=== PATIENT | female | born 1970 | race Caucasian/White ===

== ENCOUNTER 2018-03-31 02:05 | Emergency (ER) | payer OTHER, SELFPAY ==
[2018-03-31 02:05] VITALS: BP 126/66; PULSE 64; RESP 16; TEMP 36.8; O2SAT 100; BMI 24.3
[2018-03-31] MEDS: Ondansetron 4 MG/2 ML Vial IV ×2 (02:52→05:06)
[2018-03-31] MEDS: 0.9% Normal Saline 1,000 ML 1000 ML IV (02:52)
[2018-03-31] MEDS: Morphine 4 MG/ML Syringe IV ×2 (02:52→05:06)
--- NOTE | 2018-03-31 04:06 | ED.DCSUM_ITS ---
- ER Visit Summary Date of Service: 03/31/18 Chief Complaint: [] Abdominal pain History of Present Illness: The patient is a 47 F [] stated she has had abdominal pain for last 4-1/2 hours. Came on after dinner eating [place]oc[place] food. It is aching diffuse pain. Associated 3 episodes of emesis. She had normal bowel movement tonight. She tried Tums with no relief. She has never had this before. Physical Examination: [] Vital signs reviewed General: Well-nourished well-developed Head: Normocephalic atraumatic Eyes: Pupils equal round and reactive to light extraocular movements intact ENT: TMs clear no hemotympanum no trauma Neck: Nontender full range of motion Cardiovascular: Regular rate rhythm no murmurs normal S1-S2 Respiratory: No distress clear to auscultation bilaterally chest nontender Abdomen: Soft gastric tenderness noted nondistended normal bowel sounds no masses Back: Nontender no CVA tenderness Extremities: Nontender active range of motion ?4 extremities no trauma Skin: Normal color no trauma Neuro alert oriented cranial nerves II through XII intact normal strength sensation reflexes Test Results: [] Emergency Department Course and Treatment: [] She given IV fluids Zofran and morphine. Lab work obtained. Lab work shows chloride of 112. Calcium 8.2. Liver function tests lipase normal. CBC shows no significant leukocytosis. She is negative. She does have 93 segs. Patient felt better after treatment but still has some mild pain and nausea. Given a second dose of treatment. She will be discharged with a short course of [place] and Zofran. I do not think she has an acute abdominal emergency that would warrant imaging at this time. No evidence of pancreatitis. This could be an upset stomach with gastritis and pain from eating [place]oc[place] food. She will return if she worsens Treatment Plan: [] Disposition: [] Impression: []Abdominal pain-epigastric Nausea and vomiting This note was generated with S[employer]her[employer] dictation software. It may contain incorrect words, spelling, and punctuation that were not noted in review of the chart prior to signing ED Disposition - Plan for ED Patient: Chief Complaint: Abd Pain Referrals: Ken Fountain MD [Primary Care Provider] -
[2018-03-31 04:16] LABS: Pregnancy, Serum, hCG Quali. NEGATIVE Negative (0-9 Nonpreg)
[2018-03-31 04:17] LABS: AST(SGOT) 15 U/L (15-37); Alanine Aminotransfer ALT/SGPT 22 U/L (13-56); Albumin, Serum 3.7 g/dL (3.2-5.0); Alkaline Phosphatase 83 U/L (45-117); Anion Gap 8 (5-15); BUN 12 mg/dL (7-18); BUN/Creat Ratio 14.1 RATIO (10-20); Bilirubin, Direct 0.11 mg/dL (0.00-0.30); Calcium,Total 8.2 mg/dL (8.5-10.1); Chloride 112 mmol/L (98-107); Creatinine, Serum 0.85 mg/dL (0.55-1.02); EST Glomerular Filtration Rate 76 mL/min (>60); Est Glom Filt Rate - Afr Amer 92 mL/min (>60); Estimated Creatinine Clearance 68.41 ml/min; Globulin 3.1 g/dL (2.2-4.2); Glucose 126 mg/dL (74-106); Lipase 118 U/L (73-393); Potassium 3.7 mmol/L (3.5-5.1); Protein, Total 6.8 g/dL (6.4-8.2); Sodium Level 145 mmol/L (136-145)
[2018-03-31 04:20] VITALS: BP 122/68; PULSE 76; RESP 16; O2SAT 98
[2018-03-31 04:48] LABS: Absolute Lymphocyte Count 0.49 X10^3/ul (0.83-4.51); Absolute Neutrophil Count 9.4 X10^3/uL (2.0-7.7); Basophil# 0.01 X10^3/uL; Basophil% 0.1 % (0-1); Eosinophil# 0.01 X10^3/uL; Eosinophils% 0.1 % (0-5); Hemoglobin 12.5 g/dl (12.0-15.0); Lymphocyte # 0.49 X10^3/ul (4.0); Lymphocyte % 4.8 % (19-41); Mean Corp Hgb Conc 34.7 g/gl (32-36); Mean Corpuscular Hgb 30.9 pg (27.0-32.0); Mean Corpuscular Volume 89.1 fL (81-99); Mean Platelet Vol. 10.1 fl (6.2-12.0); Monocyte# 0.14 X10^3/uL; Monocyte% 1.4 % (0-10); Neutrophil # 9.44 X10^3/uL (2.7-7.7); Neutrophil % 93.4 % (47-70); Platelet Count 229 K/mm3 (150-450); RBC Distribution Width CV 11.9 % (11.6-14.6); RBC Distribution Width SD 38.8 fl (35.1-43.9); Red Blood Count 4.04 M/mm3 (4.2-5.4); White Blood Count 10.1 K/mm3 (4.4-11.0)
[2018-03-31 04:49] LABS: Differential Indicated SCAN CRITERIA MET; POSITIVE COUNT NO; POSITIVE DIFFERENTIAL NO; POSITIVE MORPHOLOGY NO
--- NOTE | 2018-03-31 04:59 | ED.DEP ---
ED Disposition - Plan for ED Patient: Disposition: Home or Assisted Living Chief Complaint: Abd Pain Instructions: ED Abdominal Pain Unkn Cause Prescriptions: Hydrocodone Bitart/Apap 5-325 [[place]sea 5MG-325MG] 1 - 2 tab PO Q4H PRN PRN 2 Days #10 tab PRN Reason: Pain Ondansetron [Zofran Odt] 4 mg PO Q8H PRN PRN #10 tab PRN Reason: Nausea Referrals: Ken Fountain MD [Primary Care Provider] -
[2018-03-31 05:09] VITALS: BP 119/75; PULSE 77; RESP 16; O2SAT 99
== END 2018-03-31 05:17 | disposition home or self-care (01) ==
PROVIDERS: Emergency Provider Emergency Medicine
DX: R10.13 Epigastric pain (principal); R11.2 Nausea with vomiting, unspecified
CPT/HCPCS: 36415; 80048; 80076; 83690; 84703; 85025; 96361; 96374; 96375; 96376; 99285; J7030; A4216; J2405

== ENCOUNTER 2021-01-18 23:25 | Observation (INO) | payer OTHER, SELFPAY ==
[2021-01-18 23:28] VITALS: BP 119/75; PULSE 119; RESP 20; TEMP 36.4; O2SAT 90; BMI 26.5
[2021-01-18 23:29] VITALS: BP 119/75; PULSE 119; RESP 20; TEMP 36.4; O2SAT 90
[2021-01-18 23:35] VITALS: O2SAT 93
[2021-01-19] VITALS (13 sets, daily range): BP systolic 92–122; BP diastolic 57–73; PULSE 78–103; RESP 16–32; TEMP 36.7–37.2; O2SAT 89–98; BMI 27.8
--- NOTE | 2021-01-19 | EKG12_ITS ---
Test Reason : SOB Blood Pressure : / mmHG Vent. Rate : 109 BPM Atrial Rate : 109 BPM P-R Int : 142 ms QRS Dur : 094 ms QT Int : 346 ms P-R-T Axes : 024 029 026 degrees QTc Int : 465 ms Sinus tachycardia Incomplete right bundle branch block Borderline ECG Confirmed by TRENT VÁSQUEZ, CLAYTON ([id number]), video editor SEBASTIAN VILLANUEVA ([id number]) on 01/22/2021 2:48:39 PM Referred By: BB Confirmed By:MADAN NEWMAN MD
--- NOTE | 2021-01-19 | RAD_ITS ---
STUDY: X-RAY CHEST REASON FOR EXAM: Female, 50 years old. sob, cough TECHNIQUE: Single AP portable view of the chest. COMPARISON: None. FINDINGS: The lungs are normally expanded with left mid lower lung field patchy opacities consistent with pneumonia. Right basilar consolidation suggestive of atelectasis versus infiltrate. There is no demonstrated pleural abnormality. Normal size heart. Normal mediastinum and sony. Normal visualized pulmonary arteries. Normal visualized aortic arch and descending thoracic aorta. Normal visualized thoracic spine. Normal visualized ribs, clavicles, and shoulders. There is no demonstrated abnormality of the visualized soft tissue structures of the upper abdomen. RAD/Chest 1 View (Portable) IMPRESSION: Left mid lower lung field pneumonia. Right basilar atelectasis versus infiltrate. Clinical correlation recommended. Electronically Signed: Suad Rodriguez MD at 1:10 EDT , Service support ,
--- NOTE | 2021-01-19 00:01 | ED.VIS.DYS ---
History of Present Illness Chief Complaint: Shortness of Breath Informant: Patient, Spouse/S.O. 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 Negative for: Clear sputum Chest Pain: None Narrative: 50-year-old female who has felt malaised and short of breath for the last few days. She has had a minor nonproductive cough off-and-on, but does not feel like she has a major cough or congestion or sore throat. She begins by describing this constellation of symptoms with the fact that she has been feeling very anxious. She has a hard time pinpointing what she is feeling anxious about, but it includes what is making her feel dyspneic. She states 2 weeks ago she would do a workout on the elliptical without any problems. She went to urgent care today and had a negative rapid Covid test, they sent a PCR out which is not back yet. Her also had a negative rapid Covid test and then a negative PCR before all of this. She has not had contact with anyone with Covid that she knows of but she is concerned that she may have gotten it and is getting sick. She denies any fevers or chills, myalgias, loss of taste or smell except for 1 day last week or so, she has had some headaches because she has had insomnia with inability to sleep for the last 2 nights and she has 4 children and wants to be able to sleep more than anything right now. She denies any long trips or travel out of the area recently, hospitalization, surgery, denies any history of blood clots in her legs or lungs, no pain or swelling in 1 leg or the other recently. No injuries. Past Medical History - Allergies and Home Meds Allergies/Adverse Reactions: Allergies No Known Allergies Allergy (Verified 01/18/21 23:26) Primary Care Physician: Ken Singh MD [Primary Care Provider] - Past Medical History: None Lives: With Family Smoking Status: Never smoker Review of Systems General: Reports: Malaise. Denies: Chills, Fever, Sweats Eyes: Denies: Visual changes - bilaterally, Diplopia ENT: Denies: Bilateral ear pain, Rhinorrhea, Sore throat Cardiovascular: Denies: Chest pain, Palpitations, Heart racing Respiratory: Reports: Dyspnea, Cough, Dyspnea on exertion, Orthopnea. Denies: Sputum Gastrointestinal: Reports: Diarrhea. Denies: Abdominal pain, Nausea, Vomiting, Melena, Hematochezia Genitourinary: Denies: Dysuria, Hematuria, Frequency Musculoskeletal: Denies: Myalgias, Arthralgias, Neck pain, Back pain, Swelling, Extremity Pain Skin: Denies: Rash, Wounds Neurological: Reports: Headache. Denies: Weakness, Numbness Psych: Reports: Anxiety. Denies: Suicidal thoughts Physical Exam Vital Signs/Narrative: Vital Signs Temp Pulse Resp BP Pulse Ox 01/18/21 23:29 97.5 F L 119 H 20 H 119/75 90 01/18/21 23:28 97.5 F L 119 H 20 H 119/75 90 Inital Vital Signs reviewed: Yes General: Well nourished, Well developed, No Acute Distress Head: Normocephalic, Atraumatic Eyes: Perrl, EOMI ENT: Moist mucous membranes, No rhinorrhea Neck: Supple, Nontender, No lymphadenopathy Cardiovascular: Regular rate, Regular rhythm, No murmurs, Normal S1, Normal S2, Tachycardia Respiratory: No distress, CTA bilaterally, Chest nontender Abdomen: Soft, Nontender, Nondistended, Normal bowel sounds Back: Nontender, Normal Inspection. Negative for: CVA tenderness Extremities: Nontender, No edema. Negative for: Calf Tenderness Skin: Normal color, No rash, No Trauma Neurological: Alert, Oriented x3, Cranial nerves II-XII grossly intact, Normal Strength, Normal Sensation, Normal Gait Psychological: - - very anxious Diagnostic/Tx/Re-eval Impressions Chest X-Ray 01/19/21 00:00 IMPRESSION: Left mid lower lung field pneumonia. Right basilar atelectasis versus infiltrate. Clinical correlation recommended. Electronically Signed: Suad Rodriguez MD at 1:10 EDT , Service support , Chest CTA 01/19/21 01:33 IMPRESSION: Negative CTA chest examination, without a demonstrated pulmonary embolism or arterial dissection. Diffuse bilateral multifocal pneumonitis. Electronically Signed: Suad Rodriguez MD at 2:35 EDT , Service support , 01/19/21 00:00 Chest 1 View (Portable) [RAD] Stat 01/19/21 01:33 CTA Chest W/WO Contrast [CT] Stat Laboratory Results 01/19/21 01/19/21 01/19/21 00:30 00:30 00:30 WBC 5.1 RBC 4.16 L Hgb 13.2 Hct 36.7 L MCV 88.2 MCH 31.7 MCHC 36.0 RDW Std Deviation 38.5 RDW Coeff of Nicolas 11.9 Plt Count 276 MPV 9.6 Immature Gran % (Auto) 0.800 Neut % (Auto) 69.0 Lymph % (Auto) 19.0 [place] % (Auto) 10.0 Eos % (Auto) 0.8 Baso % (Auto) 0.4 Absolute Neuts (auto) 3.5 Absolute Lymphs (auto) 0.97 Nucleated RBC % 0 D-Dimer Quant (PE/DVT) Cancelled Sodium 138 Potassium 3.2 L Chloride 104 Carbon Dioxide 30.0 Anion Gap 4 L BUN 8 Creatinine 0.82 Estim Creat Clear Calc 68.65 Est GFR (MDRD) Af Amer 96 Est GFR (MDRD) Non-Af 79 BUN/Creatinine Ratio 9.8 L Glucose 107 H Lactic Acid Calcium 9.1 Troponin I < 0.015 B-Natriuretic Peptide COVID-19 (ERLINDA) 01/19/21 01/19/21 01/19/21 00:30 00:30 00:55 WBC RBC Hgb Hct MCV MCH MCHC RDW Std Deviation RDW Coeff of Nicolas Plt Count MPV Immature Gran % (Auto) Neut % (Auto) Lymph % (Auto) [place] % (Auto) Eos % (Auto) Baso % (Auto) Absolute Neuts (auto) Absolute Lymphs (auto) Nucleated RBC % D-Dimer Quant (PE/DVT) 0.97 H* Sodium Potassium Chloride Carbon Dioxide Anion Gap BUN Creatinine Estim Creat Clear Calc Est GFR (MDRD) Af Amer Est GFR (MDRD) Non-Af BUN/Creatinine Ratio Glucose Lactic Acid 2.2 H* Calcium Troponin I B-Natriuretic Peptide 12.0 COVID-19 (ERLINDA) 01/19/21 01/19/21 02:45 04:25 WBC RBC Hgb Hct MCV MCH MCHC RDW Std Deviation RDW Coeff of Nicolas Plt Count MPV Immature Gran % (Auto) Neut % (Auto) Lymph % (Auto) [place] % (Auto) Eos % (Auto) Baso % (Auto) Absolute Neuts (auto) Absolute Lymphs (auto) Nucleated RBC % D-Dimer Quant (PE/DVT) Sodium Potassium Chloride Carbon Dioxide Anion Gap BUN Creatinine Estim Creat Clear Calc Est GFR (MDRD) Af Amer Est GFR (MDRD) Non-Af BUN/Creatinine Ratio Glucose Lactic Acid 3.1 H* Calcium Troponin I B-Natriuretic Peptide COVID-19 (ERLINDA) Detected - Rhythm Strip Rhythm Strip: Sinus Tach Rate: 110 Ectopy: None - EKG Initial EKG Interpretation: No Acute Injury Pattern, Sinus Tachycardia, - - RSR' Treatment - Dyspnea: Oxygen, Antibiotics, Steroid - Medical Decision Making Patient borderline hypoxemic at 90%, chest x-ray shows bilateral infiltrates, normal white blood count of 5.1, elevated D-dimer, and clear lungs on exam is all very suspicious for Covid pneumonitis. CTA of the chest is ordered. Will discuss with hospitalist whether a new PCR is desired, but I will keep her on precautions for now. The patient states that she hates wearing masks and thinks it is ridiculous, basically hardly ever leaves the house and basically tends to her children there, and has not had Covid vaccination and states that she will not get it. Given all of this, I am obtaining CT angiography of the chest to rule out pulmonary embolus, treating her empirically for Covid, and also with antibiotics to empirically cover her for bacterial etiologies, I will send a procalcitonin, blood cultures are sent, her lactate is slightly elevated and actually went higher after an IV fluid bolus, but her hemodynamics are stable and she is clinically stable to be admitted to [facility]. We did run a stat Covid PCR, it returned positive. ED Disposition - Plan for ED Patient: Disposition: Acute Care Hospital [facility] Diagnosis: Hypoxemia, Sepsis due to pneumonia, Pneumonia due to COVID-19 virus Referrals: Ken Singh MD [Primary Care Provider] -
[2021-01-19 00:44] LABS: Absolute Lymphocyte Count 0.97 X10^3/uL (0.83-4.51); Absolute Neutrophil Count 3.5 X10^3/uL (2.0-7.7); Basophil# 0.02 X10^3/uL; Basophil% 0.4 % (0-1); Differential Indicated SCAN CRITERIA MET; Eosinophil# 0.04 X10^3/uL; Eosinophils% 0.8 % (0-5); Hematocrit 36.7 % (37-47); Hemoglobin 13.2 g/dL (12.0-15.0); Lymphocyte # 0.97 X10^3/ul (4.0); Mean Corpuscular Hgb 31.7 pg (27.0-32.0); Mean Corpuscular Volume 88.2 fL (81-99); Mean Platelet Vol. 9.6 fl (6.2-12.0); Monocyte# 0.51 X10^3/uL; NRBC Flagged by Analyzer 0 % (0-5); Neutrophil # 3.53 X10^3/uL (2.7-7.7); POSITIVE MORPHOLOGY YES; Platelet Count 276 K/mm3 (150-450); RBC Distribution Width CV 11.9 % (11.6-14.6); RBC Distribution Width SD 38.5 fl (35.1-43.9); Red Blood Count 4.16 M/mm3 (4.2-5.4); White Blood Count 5.1 K/mm3 (4.4-11.0)
[2021-01-19 01:05] LABS: Anion Gap 4 (5-15); BUN 8 mg/dL (7-18); BUN/Creat Ratio 9.8 RATIO (10-20); Calcium,Total 9.1 mg/dL (8.5-10.1); Chloride 104 mmol/L (98-107); Creatinine, Serum 0.82 mg/dL (0.55-1.02); EST Glomerular Filtration Rate 79 mL/min (>60); Est Glom Filt Rate - Afr Amer 96 mL/min (>60); Estimated Creatinine Clearance 68.65 ml/min; Glucose 107 mg/dL (74-106); Potassium 3.2 mmol/L (3.5-5.1); Sodium Level 138 mmol/L (136-145)
[2021-01-19 01:07] LABS: Lactic Acid 2.2 mmol/L (0.4-1.9)
[2021-01-19 01:16] LABS: D-Dimer Quantitative (DVT/PE) 0.97 FEU/ug/m (0.27-0.49)
--- NOTE | 2021-01-19 01:33 | CT_ITS ---
STUDY: CTA CHEST REASON FOR EXAM: Female, 50 years old. sob, elevated d-dimer RADIATION DOSAGE (If Supplied By Facility): CTDIvol = ( 7.15 ) mGy, DLP = ( 216.18 ) mGycm TECHNIQUE: The examination was performed with the intravenous administration of IV 100mL Isovue-370. Post-processing of the angiographic images was performed, with multiplanar reformation and 3D reconstruction. Individualized dose optimization techniques were used for this CT. COMPARISON: None. FINDINGS: Normal enhancement of the main pulmonary artery and right and left pulmonary arteries. Normal enhancement of the bilateral peripheral pulmonary arteries. There is no demonstrated pulmonary embolism. Normal thoracic aorta and visualized great vessels. There is no demonstrated aortic dissection. Normal heart and pericardium. Normal mediastinum. Normal hilar regions. Normal visualized trachea and bronchi. The lungs are well expanded. Extensive bilateral and predominantly peripherally oriented multifocal groundglass opacities consistent with pneumonitis. Normal pleura. Normal chest wall structures. There are mild degenerative changes of thoracic spine. Normal visualized upper abdomen. CT/CTA Chest W/WO Contrast IMPRESSION: Negative CTA chest examination, without a demonstrated pulmonary embolism or arterial dissection. Diffuse bilateral multifocal pneumonitis. Electronically Signed: Suad Rodriguez MD at 2:35 EDT , Service support ,
[2021-01-19] MEDS: dexAMETHasone 10 MG/ML Vial 6 MG IV (02:03)
[2021-01-19 04:21] LABS: Reflex Lactate? N
[2021-01-19 05:08] LABS: Lactic Acid 3.1 mmol/L (0.4-1.9)
--- NOTE | 2021-01-19 05:40 | PCM.HP.STD ---
Problem List (1) Hypoxemia Status: Acute (2) Sepsis due to pneumonia Status: Acute (3) Pneumonia due to COVID-19 virus Status: Acute History of Present Illness Date of Admission: 01/19/21 Chief Complaint: shortness of breath The patient is a 50 year old female patient with no significant past medical history who presents the emergency room with acute shortness of breath. The patient states she was seen in an urgent care earlier today and was tested with a rapid Covid test which was negative. Despite that result she continued to have shortness of breath and came to the emergency room for evaluation late last evening. Subsequent Covid testing was positive in our emergency room, and CT scan was positive for bilateral pneumonitis. White blood cell count was 5.1, hemoglobin was 13.2, hematocrit 36.7, platelets 276, sodium 138, potassium 3.2, chloride 104, bicarb 30, BUN 8, creatinine 0.82, lactate 3.1. Despite having no known sick contacts patient seems befuddled as to how she contracted the Covid virus. Patient will be admitted for further management and isolation. Past Medical History Allergies No Known Allergies Allergy (Verified 01/18/21 23:26) Home Medications: Ambulatory Orders Medication Instructions Recorded NK 01/18/21 Lives: With Family Smoking Status: Never smoker - *Family History Maternal History Items: No pertinent history Review of Systems Constitutional: Denies: Chills, Fever, Weight Change HEENT: Denies: Head Aches, Sinus Congestion, Sinus Drainage Cardiovascular: Denies: Chest Pain, Palpitations Respiratory: Reports: Cough, Shortness of breath at rest. Denies: Sputum production Gastrointestinal: Denies: Abdominal Pain, Nausea, Vomiting Genitourinary: Denies: Dysuria Musculoskeletal: Denies: Joint Pain, Joint Tenderness Skin: Denies: Rash, Wounds Neurological: Denies: Numbness, Tingling, Focal weakness Psychiatric: Denies: Anxiety, Depression, Homicidal Ideations, Suicidal Ideations Hematologic/ Lymphatic: Denies: Easy Bruising, Easy Bleeding VTE Information - Inpt Only VTE Present on Admission: No VTE Mechan Device Prophylaxis: None VTE Pharm Prophylaxis ordered?: Yes Patient Problems: Active and Suspected Problems Hypoxemia (Acute) Sepsis due to pneumonia (Acute) Pneumonia due to COVID-19 virus (Acute) - Physical Exam Vitals/I&O's: Vital Signs Temp Pulse Resp BP Pulse Ox 98.9 F 88 18 115/70 96 01/19/21 05:00 01/19/21 05:00 01/19/21 05:00 01/19/21 05:00 01/19/21 05:00 Oxygen Flow Rate (L/min) 2 Oxygen Delivery Method Nasal Cannula Weight: 150 lb Body Mass Index (BMI) 26.5 Intake and Output for Last 24 Hours 01/17/21 01/18/21 01/19/21 23:59 23:59 23:59 Intake Total 355 / 355 Balance 355 / 355 General: Alert, Oriented x3, Cooperative HEENT: Atraumatic, Normocephalic Neck: Supple Lungs: No rhonchi, No wheeze, No rales, Diminished Cardiovascular: Regular rate, Normal S1, Normal S2, No murmurs, Tachycardic Abdomen: Bowel Sounds Present, Soft, Non Tender Extremities: No edema Skin: No rashes Musculoskeletal: No Tenderness to Palpation of Joints or Extremities Neurological: Neuro grossly intact Psych/Mental Status: Normal Affect, Appropriate Laboratory Results 01/19/21 00:30: WBC 5.1, RBC 4.16 L, Hgb 13.2, Hct 36.7 L, MCV 88.2, MCH 31.7, MCHC 36.0, RDW Std Deviation 38.5, RDW Coeff of Nicolas 11.9, Plt Count 276, MPV 9.6, Immature Gran % (Auto) 0.800, Neut % (Auto) 69.0, Lymph % (Auto) 19.0, [place] % (Auto) 10.0, Eos % (Auto) 0.8, Baso % (Auto) 0.4, Absolute Neuts (auto) 3.5, Absolute Lymphs (auto) 0.97, Nucleated RBC % 0 01/19/21 00:30: D-Dimer Quant (PE/DVT) Cancelled 01/19/21 00:30: Sodium 138, Potassium 3.2 L, Chloride 104, Carbon Dioxide 30.0, Anion Gap 4 L, BUN 8, Creatinine 0.82, Estim Creat Clear Calc 68.65, Est GFR (MDRD) Af Amer 96, Est GFR (MDRD) Non-Af 79, BUN/Creatinine Ratio 9.8 L, Glucose 107 H, Calcium 9.1, Troponin I < 0.015 01/19/21 00:30: B-Natriuretic Peptide 12.0 01/19/21 00:30: Lactic Acid 2.2 H* 01/19/21 00:55: D-Dimer Quant (PE/DVT) 0.97 H* 01/19/21 02:45: COVID-19 (ERLINDA) Detected 01/19/21 04:25: Lactic Acid 3.1 H* 01/19/21 05:24: Procalcitonin Pending Current Medications Sodium Chloride 1,000 ml/ N/A 1,000 mls @ 204.117 mls/hr IV .Q4H54M DIONTE Stop: 01/19/21 08:36 Last Admin: 01/19/21 01:59 Dose: 3 ml/kg/hr, 204.1 mls/hr Documented by: Sodium Chloride () 1,000 mls @ 999 mls/hr IV .Q1H1M ONE Stop: 01/19/21 06:20 Assessment/Plan All Active Problems Hypoxemia (Acute) Sepsis due to pneumonia (Acute) Pneumonia due to COVID-19 virus (Acute) Plan 1. Acute shortness of breath/Covid 19 infection/sepsis?admit patient to isolation floor, oxygen per protocol, albuterol inhaler INH every 4 hours as needed shortness of breath, IV steroids per protocol. Aggressive IV hydration with normal saline repeat lactic acid. Repeat CBC BMP in the morning 2. Hypokalemia?replace potassium 3. DVT prophylaxis?low molecular weight heparin
[2021-01-19] MEDS: 0.9% Normal Saline 1,000 ML 999 ML IV (05:49)
[2021-01-19 05:58] LABS: Procalcitonin 0.11 ng/mL (0.00-0.09)
[2021-01-19] MEDS: Potassium Chloride Oral Tablet 20 MEQ 40 MEQ PO (06:37)
[2021-01-19 08:31] LABS: Reflex Lactate? Y
--- NOTE | 2021-01-19 11:18 | PCM.DC ---
- Discharge Diagnoses Current Active Problems: Current Active and Chronic Problems Hypoxemia (Acute) Sepsis due to pneumonia (Acute) Pneumonia due to COVID-19 virus (Acute) You will use the following diet at home:: No restrictions Your food should be the consistency of: Regular Your liquids should be the consistency of: Regular/Thin Discharge Activity: Return to Normal Activity Additional Instructions: Self quarantine for 10 days from first onset of symptoms. Return to ER for evaluation if breathing becomes much worse Allergies/Adverse Reactions: Allergies No Known Allergies Allergy (Verified 01/18/21 23:26) Medications to take at Discharge Dexamethasone [Decadron] 6 mg PO DAILY #30 tablet 01/19/21 The following prescriptions were given: Dexamethasone [Decadron] 6 mg PO DAILY #30 tablet Transmission Status: Pending to [facility] Primary Care Physician: Ken Singh MD [Primary Care Provider] - Test Results: Test results from this visit will be discussed in further detail at your follow-up appointment, if applicable.
--- NOTE | 2021-01-19 19:07 | DS.PCM_ITS ---
Discharge Date and Diagnosis - Problem List Patient Problems: Active and Suspected Problems Hypoxemia (Acute) Sepsis due to pneumonia (Acute) Pneumonia due to COVID-19 virus (Acute) Date of Admission: 01/19/21 Date of Discharge: 01/19/21 - Primary Discharge Diagnosis Acute Problems: Active Problems #1 COVID-19 pneumonia #2 hypoxia secondary to COVID-19 pneumonia #3 elevated lactic acid secondary to hypoxia I do not think the patient had severe sepsis Hospital Course and Treatment Operations: None Procedures: None Summary of Care Provided: The patient is a 50 year old F was seen in the emergency room with a chief complaint of shortness of breath and cough, she had been seen at an urgent care and had a negative rapid Covid test performed recently. Patient stated that she had been sick for approximately 2 to 3 days. Work-up in the emergency room revealed a normal white blood cell count, D-dimer was elevated at 0.97, potassium was low at 3.2, and the patient's lactic acid was elevated at 2.2. Patient's Covid 19 PCR test was positive, CTA of her chest was performed and did not show any evidence of pulmonary embolism but showed diffuse bilateral multifocal pneumonitis. Patient's pulse ox on room air varied from 89% to 96% while she was in the emergency room, she was placed in observation status on De dSurg 2, she remained asymptomatic with pulse ox readings from 94-97 on room air. Patient did not appear to be ill, her repeat lactic acid was also elevated. This examiner did not feel that she had severe sepsis however and I made the decision to discharge the patient on oral Decadron, I did not think that she needed remdesivir. She was seen and examined on 01/19/2021: On examination she appeared in good health and spirits, she did not appear unwell, she does not appear to be in any distress. Vital signs as documented. Skin warm and dry and without overt rashes. Neck without JVD, thyroid appears normal, trachea is midline, neck is supple. Lungs clear, normal air movement was noted. Heart exam notable for regular rhythm, normal sounds and absence of murmurs, rubs or gallops. Abdomen unrema rkable and without evidence of organomegaly, masses, or abdominal aortic enlargement, bowel sounds are present in all 4 quadrants, no abdominal tenderness was noted. Extremities nonedematous, no cyanosis was noted, no clubbing was noted. Neuro: Cranial nerves II through XII are grossly intact, no focal motor deficits were noted, sensation to light touch and pinprick is intact, motor exam 5/5 throughout. Psych: Patient is alert and oriented x3, she does not appear anxious or depressed, she does not appear agitated. I explained to the patient that her condition could worsen over the next several days and that if she became more short of breath she would need to come back to the emergency room. I think at this time she was stable for discharge. Patient was discharged on 01/19/2021. Patient was instructed to self quarantine for 10 days after her first symptoms. Patient Problems: Active and Suspected Problems Hypoxemia (Acute) Sepsis due to pneumonia (Acute) Pneumonia due to COVID-19 virus (Acute) - Physical Exam Vitals/I&O's: Vital Signs Temp Pulse Resp BP Pulse Ox 98.1 F 95 18 92/57 L 94 01/19/21 08:30 01/19/21 08:30 01/19/21 08:30 01/19/21 08:30 01/19/21 08:30 Oxygen Flow Rate (L/min) 2 Oxygen Delivery Method Room Air Weight: 71.305 kg Body Mass Index (BMI) 27.8 Intake and Output for Last 24 Hours 01/17/21 01/18/21 01/19/21 23:59 23:59 23:59 Intake Total 2355 / 2355 Balance 2355 / 2355 Laboratory Results 01/19/21 00:30: WBC 5.1, RBC 4.16 L, Hgb 13.2, Hct 36.7 L, MCV 88.2, MCH 31.7, MCHC 36.0, RDW Std Deviation 38.5, RDW Coeff of Nicolas 11.9, Plt Count 276, MPV 9.6, Immature Gran % (Auto) 0.800, Neut % (Auto) 69.0, Lymph % (Auto) 19.0, [place] % (Auto) 10.0, Eos % (Auto) 0.8, Baso % (Auto) 0.4, Absolute Neuts (auto) 3.5, Absolute Lymphs (auto) 0.97, Nucleated RBC % 0 01/19/21 00:30: D-Dimer Quant (PE/DVT) Cancelled 01/19/21 00:30: Sodium 138, Potassium 3.2 L, Chloride 104, Carbon Dioxide 30.0, Anion Gap 4 L, BUN 8, Creatinine 0.82, Estim Creat Clear Calc 68.65, Est GFR (MDRD) Af Amer 96, Est GFR (MDRD) Non-Af 79, BUN/Creatinine Ratio 9.8 L, Glucose 107 H, Calcium 9.1, Troponin I < 0.015 01/19/21 00:30: B-Natriuretic Peptide 12.0 01/19/21 00:30: Lactic Acid 2.2 H* 01/19/21 00:55: D-Dimer Quant (PE/DVT) 0.97 H* 01/19/21 02:45: COVID-19 (ERLINDA) Detected 01/19/21 04:25: Lactic Acid 3.1 H* 01/19/21 05:24: Procalcitonin 0.11 H Discharge Activity: Return to Normal Activity Home Medications: Medications to take at Discharge Dexamethasone [Decadron] 6 mg PO DAILY #30 tablet 01/19/21 Following Prescriptions Were Given to Patient: Dexamethasone [Decadron] 6 mg PO DAILY #30 tablet Transmission Status: Received by [facility] Primary Care Physician: Ken Singh MD [Primary Care Provider] - Disposition: Home Minutes spent on discharge:: 30 Patient Condition:: Stable Medical Necessity - Tobacco Use Smoking Status: Never smoker Meaningful Use Info Meaningful Use Diagnoses (Choose all that apply): None applicable OBSV E&M: 86067 Observ/hosp same date L3
--- NOTE | 2021-01-20 14:46 | CASEMGMT ---
RN CM COVID Discharge Follow Up Phone Call: Call Date: 01/20/21 Discharge Date: 01/19/21 Time of Call:1234 and 1446 Duration: <1 min Admitting Dx: COVID 19 RN HAZEL attempted to complete follow up phone call after recent hospitalization. First call pt was not available for another hour. Second call no answer.
== END 2021-01-19 13:45 | disposition home or self-care (01) ==
LOC: ED 01-19 01:50 → ICU 01-19 06:00
PROVIDERS: Admitting Provider Family Medicine; Emergency Provider Emergency Medicine; PCP Family Medicine; Visit Provider Internal Medicine
DX: U07.1 COVID-19 (principal); J12.82 Pneumonia due to coronavirus disease 2019; R09.02 Hypoxemia; E87.6 Hypokalemia
CPT/HCPCS: 71045; 71275; 80048; 83605; 83880; 84145; 84484; 85025; 85379; 87040; 87635; 93005; 96361; 96365; 96367; 96375; 99218; 99285; J7030; J7050; Q9967; A4216; G0378; U0002

== ENCOUNTER → 2021-09-20 | Outpatient (CLI) | payer OTHER, SELFPAY ==
[2021-09-23 19:49] LABS: HPV APTIMA, High Risk Negative (Negative)
== END | disposition home or self-care (01) ==
LOC: LABSPEC 13:44
PROVIDERS: PCP Family Medicine; Visit Provider Student in an Organized Health Care Education/Training Program
DX: Z12.4 Encounter for screening for malignant neoplasm of cervix (principal)
CPT/HCPCS: 87624; 88175; G0145

== ENCOUNTER 2021-11-16 10:23 | Inpatient (IN) | payer OTHER, SELFPAY ==
[2021-11-16] VITALS (8 sets, daily range): BP systolic 111–134; BP diastolic 62–78; PULSE 64–111; RESP 16–18; TEMP 36.1–36.8; O2SAT 96–99; BMI 26.5; BMI 26.0
--- NOTE | 2021-11-16 10:46 | US_ITS ---
STUDY: ABDOMINAL ULTRASOUND - RIGHT UPPER QUADRANT REASON FOR VISIT: Female, 51 years old . Right upper quadrant pain. TECHNIQUE: Ultrasound evaluation of the right upper quadrant was performed with real-time and static madden-scale imaging. TECHNICAL QUALITY: Adequate. COMPARISON: None. FINDINGS: Liver: The liver measures 15.3 cm. There is normal echogenicity of the liver. The bile ducts are mildly dilated. There is hepatic color flow. The direction of portal flow is hepatopetal. There is no demonstrated mass lesion. Gallbladder: There is a contracted gallbladder. The gallbladder wall measures 3 mm. There is a negative sonographic Padgett''s sign. There is no pericholecystic fluid. There are multiple echogenic structures within the gallbladder, consistent with multiple gallstones. Common Bile Duct (C.B.D.): The common bile duct is dilated and measures 10 mm. Pancreas: Normal size of the head, body and tail of the pancreas. There is normal echogenicity of the pancreas. There is no demonstrated pancreatic mass or cyst. Right Kidney: Normal size of the right kidney. The right kidney measures 9.9 cm x 4.5 cm x 4.6 cm. Normal renal cortex. The right cortex measures 1.3 cm. There is no demonstrated renal mass or cyst. There is no right hydronephrosis. US/Gallbladder IMPRESSION: Contracted stone filled gallbladder. Dilated common bile duct. Mildly dilated intrahepatic biliary ducts. Electronically Signed: Von Muhammad MD at 12:11 EST ,
--- NOTE | 2021-11-16 10:47 | EX.ED.DYSGE1 ---
HPI History of Present Illness Chief Complaint: Abd Pain Informant: patient Narrative Narrative: 51-year-old female arriving in the emergency department with the chief complaint of upper abdominal pain. Symptoms began last night around 1900 hrs. and have been persistent. She notes nausea and vomiting. She notes that she was diagnosed with gallstones and visited with Dr. Contreras in August. The recommendation was for a cholecystectomy. 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 She denies any fever. No diarrhea. PFSH PFSH Medical History no medical history Home Medications NK 11/16/21 [History Last Taken Unknown] Allergy/AdvReac Type Severity Reaction Status Date / Time No Known Allergies Allergy Verified 11/16/21 10:26 Family History no significant family his Surgical History no surgical history Social History (Updated 11/16/21 @ 10:[address] Bhaskar Tracy, DO) Smoking Status: Never smoker substance use type: does not use ROS ROS ED Constitutional Constitutional ED: Denies chills, fever(s) or weight loss Eyes Eyes: Denies change in vision or diplopia ENT ENT ED: Denies ear pain, rhinorrhea or sore throat Cardiovascular Cardiovascular: Denies chest pain, orthopnea, palpitations or racing heartbeat Respiratory/Chest Respiratory/Chest: Denies cough, dyspnea or orthopnea Gastrointestinal Gastrointestinal: Reports abdominal pain, nausea and vomiting; Denies diarrhea Genitourinary Genitourinary ED: Denies dysuria, hematuria or urinary frequency Musculoskeletal Musculoskeletal: Denies arthralgias or myalgias Integumentary Denies abscess or rash Neurologic Neurologic: Denies headache(s) or weakness Psychiatric Psychiatric: Denies anxiety, depression, suicidal ideation or suicidal thoughts Endocrine Endocrinology: Denies polydipsia, polyphagia or polyuria Allergic/Immunologic Allergic/Immunologic ED: Denies mouth swelling, tongue swelling or urticaria EXAM Physical Exam Const Vital Signs: 11/16/21 10:24 11/16/21 10:26 Temperature 97 F L Temperature Source Temporal Pulse Rate 73 Respiratory Rate 18 Blood Pressure 111/63 Blood Pressure Mean 79 Pulse Ox 97 Oxygen Delivery Method Room Air Positive well nourished and well developed General Appearance ED: well developed HEENT Reports normocephalic, head/scalp atraumatic, TM's clear and moist mucous membranes Negative for trauma Tympanic Membrane ED: Yes TM's clear Eyes PERRL and EOMs intact bilaterally Neck no lymphadenopathy, supple and no JVD Resp normal respiratory effort and clear to auscultation bilaterally Cardio regular rate, regular rhythm and no murmurs GI Auscultation: normoactive bowel sounds Palpation: soft, tender RUQ and guarding Back/Spine no CVA tenderness and normal ROM Extremity normal to inspection General Extremety ED: Negative for edema General Extremity: Negative for edema Neuro oriented x3 and CN's II-XII intact bilaterally Sensorium / Orientation: alert Motor Exam: strength 5/5 throughout Psych mental status grossly normal Mood & Affect: Negative for depressed or tearful Skin no rashes or lesions noted and no wounds MDM MDM MDM Narrative Medical decision making narrative: Patient received morphine and Zofran. She was started on IV fluids. White count 11.3. Lipase is elevated 9251. Total bilirubin of 2.9 with a direct bili of 1.8. AST of 436 and ALT of 411 alk phos 323. Gallbladder ultrasound was performed. Patient was started on Zosyn. Lab Data Attestation: I reviewed the patient's lab results. Labs: Laboratory Results - last 24 hr 11/16/21 11/16/21 10:55 10:55 WBC 11.3 H RBC 4.68 Hgb 15.2 H Hct 41.7 MCV 89.1 MCH 32.5 H MCHC 36.5 H RDW Std Deviation 36.9 RDW Coeff of Nicolas 11.6 Plt Count 295 MPV 9.8 Immature Gran % (Auto) 0.400 Neut % (Auto) 91.9 H Lymph % (Auto) 4.3 L [place] % (Auto) 3.2 Eos % (Auto) 0.0 Baso % (Auto) 0.2 Absolute Neuts (auto) 10.4 H Absolute Lymphs (auto) 0.48 L Nucleated RBC % 0 Sodium 139 Potassium 3.5 Chloride 106 Carbon Dioxide 26.0 Anion Gap 7 BUN 8 Creatinine 0.69 Estim Creat Clear Calc 80.69 Est GFR (MDRD) Af Amer 115 Est GFR (MDRD) Non-Af 95 BUN/Creatinine Ratio 11.6 Glucose 158 H Calcium 8.9 Total Bilirubin 2.90 H Direct Bilirubin 1.84 H AST 436 H ALT 411 H Alkaline Phosphatase 323 H Total Protein 7.3 Albumin 3.9 Globulin 3.4 Lipase 9251 H Discharge Plan Dx/Rx/DC Orders Clinical Impression: Acute gallstone pancreatitis, Abdominal pain Disposition Disposition: Acute Care Hospital [facility]
[2021-11-16] MEDS: Morphine 4 MG/ML Syringe IV ×3 (10:55→14:52)
[2021-11-16] MEDS: Ondansetron 4 MG/2 ML Vial IV (10:55)
[2021-11-16 11:02] LABS: Absolute Lymphocyte Count 0.48 X10^3/uL (0.83-4.51); Absolute Neutrophil Count 10.4 X10^3/uL (2.0-7.7); Basophil# 0.02 X10^3/uL; Basophil% 0.2 % (0-1); Hematocrit 41.7 % (37-47); Hemoglobin 15.2 g/dL (12.0-15.0); Lymphocyte # 0.48 X10^3/ul (0.83-4.51); Lymphocyte % 4.3 % (19-41); Mean Corp Hgb Conc 36.5 g/dL (32-36); Mean Corpuscular Hgb 32.5 pg (27.0-32.0); Mean Corpuscular Volume 89.1 fL (81-99); Mean Platelet Vol. 9.8 fl (6.2-12.0); Monocyte# 0.36 X10^3/uL; Monocyte% 3.2 % (0-10); NRBC Flagged by Analyzer 0 % (0-5); Neutrophil # 10.38 X10^3/uL (2.7-7.7); Neutrophil % 91.9 % (47-70); POSITIVE DIFFERENTIAL YES; Platelet Count 295 K/mm3 (150-450); RBC Distribution Width CV 11.6 % (11.6-14.6); RBC Distribution Width SD 36.9 fl (35.1-43.9); Red Blood Count 4.68 M/mm3 (4.2-5.4); White Blood Count 11.3 K/mm3 (4.4-11.0)
[2021-11-16 11:08] LABS: Differential Indicated SCAN CRITERIA MET
[2021-11-16 11:21] LABS: AST(SGOT) 436 U/L (15-37); Alanine Aminotransfer ALT/SGPT 411 U/L (13-56); Albumin, Serum 3.9 g/dL (3.2-5.0); Alkaline Phosphatase 323 U/L (45-117); Anion Gap 7 (5-15); BUN 8 mg/dL (7-18); BUN/Creat Ratio 11.6 RATIO (10-20); Bilirubin, Direct 1.84 mg/dL (0.00-0.30); Calcium,Total 8.9 mg/dL (8.5-10.1); Chloride 106 mmol/L (98-107); Creatinine, Serum 0.69 mg/dL (0.55-1.02); EST Glomerular Filtration Rate 95 mL/min (>60); Est Glom Filt Rate - Afr Amer 115 mL/min (>60); Estimated Creatinine Clearance 80.69 ml/min; Globulin 3.4 g/dL (2.2-4.2); Glucose 158 mg/dL (74-106); Lipase 9251 U/L (73-393); Potassium 3.5 mmol/L (3.5-5.1); Protein, Total 7.3 g/dL (6.4-8.2); Sodium Level 139 mmol/L (136-145)
[2021-11-16] MEDS: 0.9% Normal Saline 1,000 ML 200 ML IV ×3 (12:13→22:50)
--- NOTE | 2021-11-16 13:32 | HP.PCM.HOS_ITS ---
[facility] - General General Date of Service: 11/16/21 Chief Complaint: Abdominal pain [facility] Narrative KRYSTINA SANCHES, is a 51 F who presents with abdominal pain ongoing since last night. Patient has history of gallstones but had postponed cholecystectomy as she was looking to try natural remedies. She started having severe onset of dull abdominal pain that went across her abdomen and to her back. Pain was so severe 10 out of 10, associated with nausea and an episode of vomiting. She denied any fever or chills. She has not noticed any change in her stool color. Vitals in the ED were stable. Admitting blood work showed a BC count of 11.3, hemoglobin 15.2, platelet count of 295. CMP was significant for total bilirubin of 2.9, direct bili 1.8, AST 436, ALT 411, ALP 323. Ultrasound of the gallbladder showed contracted gallbladder with negative sonographic Padgett sign, no pericholecystic fluid, multiple echogenic structures within the gallbladder consistent with multiple gallstones. Common bile duct is dilated and measures 10 mm. PFSH Medical History Anemia Depression Migraines Non-smoker Medical History no medical history no medical history Home Medications ferrous sulfate [FeroSul] 325 mg PO BID 11/16/21 [History Last Taken 11/15/21] Allergy/AdvReac Type Severity Reaction Status Date / Time No Known Allergies Allergy Verified 11/16/21 10:26 Family History (Updated 11/16/21 @ 14:[address] Helen Dela Cruz MD) Father Aneurysm Mother No significant past medical history Family History no significant family his Surgical History no surgical history no surgical history Social History (Updated 11/16/21 @ 14:[address] Helen Dela Cruz MD) household members: spouse housing: house Smoking Status: Never smoker alcohol intake: never substance use type: does not use ROS ROS Narrative Constitutional: Denies: Anorexia, Chills, Fever, Night Sweats, Weight Change Eyes: Denies: Blurred vision, Cataracts, Conjunctivae Inflammation, Pain, Redness, Vision Change HEENT: Denies: Difficulty Hearing, Difficulty Swallowing, Head Aches, Hearing Changes, Sinus Congestion, Sinus Drainage Cardiovascular: Denies: Chest Pain, Orthopnea, Palpitations Respiratory: Denies: Cough, Shortness of breath at rest, Sputum production Gastrointestinal: See HPI Genitourinary: Denies: Dysuria Musculoskeletal: Denies: Joint Pain, Joint stiffness, Joint swelling, Joint Tenderness Skin: Denies: Rash, Wounds Neurological: Denies: Numbness, Tingling, Focal weakness Vital Signs Vital Signs Vital Signs: 11/16/21 10:24 11/16/21 10:26 11/16/21 12:30 Temperature 97 F L Temperature Source Temporal Pulse Rate 73 69 Respiratory Rate 18 16 Blood Pressure 111/63 124/64 H Blood Pressure Mean 79 84 Pulse Ox 97 98 Oxygen Delivery Method Room Air Room Air Weight Weight: 68.039 kg Body Mass Index (BMI) 26.5 Physical Exam Narrative Physical exam: General: Alert, Oriented x3, Cooperative, in mild distress, well developed HEENT: Atraumatic Oral: Moist Mucosa Neck: Supple Lungs: Clear to auscultation Cardiovascular: HS I+II, regular, no murmurs Abdomen: Bowel Sounds Present, Soft, generalised tenderness in the upper abdomen,guarding+, norebound tenderness Extremities: No edema Results Lab / Micro Data Result Diagrams: 11/16/21 10:55 11/16/21 10:55 Labs: Laboratory Results - last 24 hr 11/16/21 10:55: WBC 11.3 H, RBC 4.68, Hgb 15.2 H, Hct 41.7, MCV 89.1, MCH 32.5 H , MCHC 36.5 H, RDW Std Deviation 36.9, RDW Coeff of Nicolas 11.6, Plt Count 295, MPV 9.8, Immature Gran % (Auto) 0.400, Neut % (Auto) 91.9 H, Lymph % (Auto) 4.3 L, [place] % (Auto) 3.2, Eos % (Auto) 0.0, Baso % (Auto) 0.2, Absolute Neuts (auto) 10.4 H, Absolute Lymphs (auto) 0.48 L, Nucleated RBC % 0 11/16/21 10:55: Sodium 139, Potassium 3.5, Chloride 106, Carbon Dioxide 26.0, Anion Gap 7, BUN 8, Creatinine 0.69, Estim Creat Clear Calc 80.69, Est GFR (MDRD) Af Amer 115, Est GFR (MDRD) Non-Af 95, BUN/Creatinine Ratio 11.6, Glucose 158 H, Calcium 8.9, Total Bilirubin 2.90 H, Direct Bilirubin 1.84 H, AST 436 H, ALT 411 H, Alkaline Phosphatase 323 H, Total Protein 7.3, Albumin 3.9, Globulin 3.4, Lipase 9251 H Radiology Impression Gallbladder Ultrasound 11/16/21 10:46 IMPRESSION: Contracted stone filled gallbladder. Dilated common bile duct. Mildly dilated intrahepatic biliary ducts. Electronically Signed: Von Muhammad MD at 12:11 EST , Assessment & Plan Assessment/Plan (1) Acute gallstone pancreatitis: (2) Abdominal pain: PLAN: 1. Acute gallstone pancreatitis in a patient with known history of gallstones WBC count 11.3, lipase is 9251, LFTs are elevated Ultrasound of the gallbladder shows contracted stone filled gallbladder, dilated common bile duct, mildly dilated intrahepatic biliary duct Admit to MedSur, keep n.p.o., IV fluids, pain control, empiric Zosyn General surgery and GI consulted from ED Repeat blood work in am 2. DVT PPx- low risk; early ambulation 3. Code status - Full code I discussed and explained in details the various types of CODE STATUS-full code, DNR CCA, DNR CC. Patient chose full code Time spent discussing CODE STATUS 16 minutes Charges/Coding Visit Charges Inpatient E&M: 96826 Init Hosp L3 Procedures Hospitalists Procedures: 64966 Advncd Care Plan 30 Min
--- NOTE | 2021-11-16 13:40 | CASEMGMT ---
RN CM to room to meet with patient for initial transition planning/care coordination assessment. RN HAZEL introduced self and role at [facility]. Patient voices understanding and consents to assessment at this time. Patient's Andrew present at bedside. Patient is alert and oriented, lying on ER cart and answers all questions appropriately. Care providers, pharmacy, and demographics verified/updated at this time. Admitting Dx: Gallstone pancreatitis PCP: Klarissa Nation Specialists: Denies Preferred Pharmacy: [facility] Holder Insurance: [facility] Prescription Benefit: yes Living Will/HPOA: Patient denies having a living will or HPOA. LNOK: Andrew Lange Jr. Living Arrangements: Patient lives with and 4 children in two story house with two steps to enter the home, no handrail present. Patient states independent with ADLs prior to hospitalization. Smoking/ETOH: Never smoker, denies ETOH or drug use Transportation: Patient drives self and denies transportation concerns. DME/HHC/SNF: Patient denies having any DME in the home and denies need for any DME at this time. Denies previous HHC or SNF stays. Patient has no concerns with going home at time of discharge. CM to follow for any discharge planning/needs. Patient voices no concerns/needs at this time. Advised patient to ask for CM if any questions/concerns/needs arise. Voices understanding. Plan: home
--- NOTE | 2021-11-16 13:52 | NURSING ---
MED SURG NUAMA GALLSTONES PANCREATITIS
--- NOTE | 2021-11-16 15:52 | CON.PCM.SX_ITS ---
Assessment & Plan Assessment/Plan (1) Acute gallstone pancreatitis: PLAN: Will await gastroenterology consultation. Would prefer the patient receive an ERCP prior to any surgical interventions performed. After that then I will perform a laparoscopic cholecystectomy on her. My plan is to perform a laparoscopic cholecystectomy with intraoperative cholangiogram. The planned surgical procedure was discussed extensively with the patient. The risks, benefits, anticipated outcomes and possible complication were mentioned. My staff has also explained the procedure in understandable terms and the patient was given the option to take printed material concerning the planned procedure. The patient had the opportunity to ask questions concerning the planned procedure. The patient freely consents to the planned procedure. HPI Consult Data Date of Consult: 11/16/21 HPI Narrative HPI Narrative: KRYSTINA SANCHES, is a 51 F who presents with abdominal pain ongoing since last night. Patient has history of gallstones but had postponed cholecystectomy as she was looking to try natural remedies. She started having severe onset of dull abdominal pain that went across her abdomen and to her back. Pain was so severe 10 out of 10, associated with nausea and an episode of vomiting. She denied any fever or chills. She has not noticed any change in her stool color. Vitals in the ED were stable. Admitting blood work showed a BC count of 11.3, hemoglobin 15.2, platelet count of 295. CMP was significant for total bilirubin of 2.9, direct bili 1.8, AST 436, ALT 411, ALP 323. Ultrasound of the gallbladder showed contracted gallbladder with negative sonographic Padgett sign, no pericholecystic fluid, multiple echogenic structures within the gallbladder consistent with multiple gallstones. Common bile duct is dilated and measures 10 mm. PFSH Medical History Anemia Depression Migraines Non-smoker Medical History no medical history Home Medications ferrous sulfate [FeroSul] 325 mg PO BID 11/16/21 [History Last Taken 11/15/21] Allergy/AdvReac Type Severity Reaction Status Date / Time No Known Allergies Allergy Verified 11/16/21 10:26 Family History Father Aneurysm Mother No significant past medical history Family History no significant family his Surgical History no surgical history Social History household members: spouse housing: house Smoking Status: Never smoker alcohol intake: never substance use type: does not use ROS Constitutional Constitutional: Denies chills, fatigue or fever(s) Cardiovascular Cardiovascular: Reports chest pain Respiratory/Chest Respiratory/Chest: Denies cough or dyspnea Gastrointestinal Gastrointestinal: Reports abdominal pain Genitourinary Genitourinary: Denies difficulty urinating Physical Exam Const alert and oriented x3 General Appearance: cooperative HEENT normocephalic and head/scalp atraumatic Eyes PERRL Resp clear to auscultation bilaterally GI GI Narrative: There is no rebound guarding or peritoneal signs Palpation: tender and guarding Lab / Micro Data Result Diagrams: 11/16/21 10:55 11/16/21 10:55 Labs: Laboratory Results - last 24 hr 11/16/21 10:55: WBC 11.3 H, RBC 4.68, Hgb 15.2 H, Hct 41.7, MCV 89.1, MCH 32.5 H , MCHC 36.5 H, RDW Std Deviation 36.9, RDW Coeff of Nicolas 11.6, Plt Count 295, MPV 9.8, Immature Gran % (Auto) 0.400, Neut % (Auto) 91.9 H, Lymph % (Auto) 4.3 L, [place] % (Auto) 3.2, Eos % (Auto) 0.0, Baso % (Auto) 0.2, Absolute Neuts (auto) 10.4 H, Absolute Lymphs (auto) 0.48 L, Nucleated RBC % 0 11/16/21 10:55: Sodium 139, Potassium 3.5, Chloride 106, Carbon Dioxide 26.0, Anion Gap 7, BUN 8, Creatinine 0.69, Estim Creat Clear Calc 80.69, Est GFR (MDRD) Af Amer 115, Est GFR (MDRD) Non-Af 95, BUN/Creatinine Ratio 11.6, Glucose 158 H, Calcium 8.9, Total Bilirubin 2.90 H, Direct Bilirubin 1.84 H, AST 436 H, ALT 411 H, Alkaline Phosphatase 323 H, Total Protein 7.3, Albumin 3.9, Globulin 3.4, Lipase 9251 H Radiology Impression Gallbladder Ultrasound 11/16/21 10:46 IMPRESSION: Contracted stone filled gallbladder. Dilated common bile duct. Mildly dilated intrahepatic biliary ducts. Electronically Signed: Von Muhammad MD at 12:11 EST ,
[2021-11-16] MEDS: oxyCODONE 5 MG Tablet PO ×2 (17:41→23:52)
[2021-11-16] MEDS: 0.9% Saline Lock 10 ML Syringe IV (17:42)
[2021-11-16] MEDS: Acetaminophen 325 MG Tablet 650 MG PO ×2 (17:42→23:52)
--- NOTE | 2021-11-16 18:30 | EX.PCM.CON.G ---
HPI Consult Data Date of Consult: 11/16/21 HPI Narrative HPI Narrative: KRYSTINA SANCHES, is a 51 F who presents 51-year-old female arriving in the emergency department with the chief complaint of upper abdominal pain. Symptoms began last night around 1900 hrs. and have been persistent. She notes nausea and vomiting. She notes that she was diagnosed with gallstones and visited with Dr. Contreras in August. The recommendation was for a cholecystectomy. Patient stated that she wanted to visit with a assistant manager trainee to avoid surgery. She denies any fever. No diarrhea.In the ED she was found to be tachycardic and hypotensive. She underwent biochemical testing that showed an elevated bilirubin, alkaline phosphatase and AST and ALT consistent with a cholestatic hepatitis and jaundice. Imaging with a CT scan abdomen pelvis that showed a dilated common bile duct up to 1 cm, there were multiple filling defects in the gallbladder and there was evidence of acute pancreatitis.Her lipase was ordered and it was determined to be over 10,000. She has been on IV fluids and beginning pain medicine. [facility] Medical History Anemia Depression Migraines Non-smoker Medical History no medical history Home Medications ferrous sulfate [FeroSul] 325 mg PO BID 11/16/21 [History Last Taken 11/15/21] Allergy/AdvReac Type Severity Reaction Status Date / Time No Known Allergies Allergy Verified 11/16/21 10:26 Family History Father Aneurysm Mother No significant past medical history Family History no significant family his Surgical History no surgical history Social History household members: spouse housing: house Smoking Status: Never smoker alcohol intake: never substance use type: does not use ROS Gastrointestinal Gastrointestinal: Reports abdominal pain and other Physical Exam Const alert General Appearance: cooperative Orientation / Consciousness: oriented to person HEENT hearing grossly normal bilaterally Head and Scalp: normal to inspection Face and Sinus: face symmetric Nose: external nose normal Mouth: oral and palatal mucosa normal Eyes conjunctivae normal General Eye: normal appearance of both eyes Neck full ROM General: normal visual inspection Lymph Lymphatic: no lymphadenopathy noted Chest inspection of chest normal and palpation of chest normal Chest: symmetrical chest wall rise Resp normal respiratory effort Effort and Inspection: able to speak in complete sentences Cardio regular rate GI non-distended Percussion: normal to percussion Rectal Exam: deferred Neuro Speech: speech normal Gait (Neuro): normal gait Lab / Micro Data Result Diagrams: 11/16/21 10:55 11/16/21 10:55 Labs: Laboratory Results - last 24 hr 11/16/21 10:55: WBC 11.3 H, RBC 4.68, Hgb 15.2 H, Hct 41.7, MCV 89.1, MCH 32.5 H, MCHC 36.5 H, RDW Std Deviation 36.9, RDW Coeff of Nicolas 11.6, Plt Count 295, MPV 9.8, Immature Gran % (Auto) 0.400, Neut % (Auto) 91.9 H, Lymph % (Auto) 4.3 L, Chambers % (Auto) 3.2, Eos % (Auto) 0.0, Baso % (Auto) 0.2, Absolute Neuts (auto) 10.4 H, Absolute Lymphs (auto) 0.48 L, Nucleated RBC % 0 11/16/21 10:55: Sodium 139, Potassium 3.5, Chloride 106, Carbon Dioxide 26.0, Anion Gap 7, BUN 8, Creatinine 0.69, Estim Creat Clear Calc 80.69, Est GFR (MDRD) Af Amer 115, Est GFR (MDRD) Non-Af 95, BUN/Creatinine Ratio 11.6, Glucose 158 H, Calcium 8.9, Total Bilirubin 2.90 H, Direct Bilirubin 1.84 H, AST 436 H, ALT 411 H, Alkaline Phosphatase 323 H, Total Protein 7.3, Albumin 3.9, Globulin 3.4, Lipase 9251 H Micro: Microbiology 11/16/21 16:37 Nasal Secretion SARS-CoV-2 Antigen (Rapid) - Final Radiology Impression Gallbladder Ultrasound 11/16/21 10:46 IMPRESSION: Contracted stone filled gallbladder. Dilated common bile duct. Mildly dilated intrahepatic biliary ducts. Electronically Signed: Von Muhammad MD at 12:11 EST , Assessment & Plan Assessment/Plan (1) Acute gallstone pancreatitis: PLAN: Patient will need an ERCP prior to undergoing cholecystectomy. Keep n.p.o. past midnight hopefully will be able to do it tomorrow. (2) Abdominal pain: PLAN: Acute gallstone pancreatitis secondary to choledocholithiasis. Patient is on IV fluids and making good urine output. Also her abdominal pain is controlled. Would recommend PPI therapy with Protonix 40 mg IV. She is not showing any signs of ileus or ARDS at this time. Charges/Coding Visit Charges Inpatient E&M: 81585 Init Hosp L2
[2021-11-16] MEDS: Piperacil/Tazobactam 3.375 GM/50 ML ML IV (21:53)
[2021-11-16] MEDS: Famotidine 20 MG Tablet PO (21:54)
[2021-11-17] VITALS (10 sets, daily range): BP systolic 85–132; BP diastolic 50–70; PULSE 74–94; RESP 15–18; TEMP 36.7–37.7; O2SAT 91–100
[2021-11-17] MEDS: 0.9% Normal Saline 1,000 ML 200 ML IV ×4 (03:47→20:27)
[2021-11-17] MEDS: Piperacil/Tazobactam 3.375 GM/50 ML ML IV ×3 (05:29→22:07)
[2021-11-17 06:07] LABS: Absolute Lymphocyte Count 0.92 X10^3/uL (0.83-4.51); Absolute Neutrophil Count 9.3 X10^3/uL (2.0-7.7); Basophil# 0.05 X10^3/uL; Basophil% 0.4 % (0-1); Eosinophil# 0.08 X10^3/uL; Eosinophils% 0.7 % (0-5); Hematocrit 35.9 % (37-47); Hemoglobin 12.3 g/dL (12.0-15.0); Lymphocyte # 0.92 X10^3/ul (0.83-4.51); Lymphocyte % 8.1 % (19-41); Mean Corp Hgb Conc 34.3 g/dL (32-36); Mean Corpuscular Hgb 31.9 pg (27.0-32.0); Mean Corpuscular Volume 93.2 fL (81-99); Mean Platelet Vol. 10.1 fl (6.2-12.0); Monocyte# 0.96 X10^3/uL; Monocyte% 8.5 % (0-10); NRBC Flagged by Analyzer 0 % (0-5); Neutrophil # 9.27 X10^3/uL (2.7-7.7); Neutrophil % 81.9 % (47-70); Platelet Count 204 K/mm3 (150-450); RBC Distribution Width SD 40.9 fl (35.1-43.9); Red Blood Count 3.85 M/mm3 (4.2-5.4); White Blood Count 11.3 K/mm3 (4.4-11.0)
--- NOTE | 2021-11-17 06:34 | HP.PCM_ITS ---
History and Physical Date of Admission: 11/17/21 26 F who presents to the office today for Reports weight loss of 20lbs in the last four months. Following a meal she is having bloating and satiety, eating one meal a day because of this feeling. Constipation alternating with diarrhea 1-2 episodes a day without mucous or blood. Reports hemorrhoids. Denies previous episodes. Uses Miralax for constipation which is helpful in allowing BM but does not encourage BM. Reports Vitamin B and D deficiency, hypothyroid. Family history of IBS. ROS Const Constitutional: Positive for fatigue, headache(s) and weight change ENT ENT: Positive for headache(s) Gastro GI: Positive for abdominal pain, bloating, change in bowel habits, constipation, diarrhea, heartburn and nausea/dyspepsia Musc Musculoskeletal: Positive for joint pain, back pain, joint swelling, muscle weakness, stiffness and Arthritis Neuro Neurology: Positive for headache(s) Endo Endocrine: Positive for cold intolerance, fatigue and weight change Exam Const General: cooperative and comfortable Nutritional Appearance: average body habitus and well nourished HENWY Head: normal to inspection Ears: hearing grossly normal bilaterally Nose: external nose normal Face and sinus: normal facial exam Mouth: oral mucosae normal Throat: posterior oropharynx normal Eyes General: appearance normal, both eyes and all related structures Neck Neck: normal visual inspection Chest Chest palpation & inspection: normal inspection of the chest and normal palpation of entire chest wall Resp Effort & Inspection: normal respiratory effort Auscultation: Bilateral: Clear to Auscultation Cardio Palpation: normal PMI Rate: regular rate Rhythm: regular rhythm GI Inspection: normal to inspection Auscultation: normal bowel sounds Percussion: normal to percussion Palpation: no hepatosplenomegaly Skin General: no rashes or lesions noted Neuro General: patient alert Extrem General: normal to inspection Psych Affect: normal affect Quality Reporting Tobacco Screening ([facility] 138) Smoking Status: Never smoker Assessment and Plan Assessment and Plan (1) Abdominal pain: Status: Acute Orders: Orders: CRP Today LDH Today Erythrocyte Sed Rate Today Angiotensin Convert Enzyme Today ANCA Today Celiac Disease Profile Today Immunoglobulin E Today Immunoglobulin G Today Immunoglobulin M Today Miscellaneous Lab Procedure Today Plan - Dr. Cole Friend, DO: Differential diagnosis for abdominal pain does include peptic ulcer disease, celiac disease, gastritis. We will check CRP, ESR, LDH, ANCA. We will also check an CRIS. (2) Weight loss: Status: Acute Orders: Orders: CRP Today LDH Today Erythrocyte Sed Rate Today Angiotensin Convert Enzyme Today ANCA Today Celiac Disease Profile Today Immunoglobulin E Today Immunoglobulin G Today Immunoglobulin M Today Miscellaneous Lab Procedure Today (3) Bloody stool: Status: Acute Plan - Dr. Cole Friend, DO: A different diagnosis for lower GI bleeding could include ulcerative colitis, hemorrhoidal bleeding, anal fissure. I will give her hydrocortisone suppositories. She will undergo lower endoscopy to evaluate her lower GI tract. Plan Details Other Medications: New: hydrocortisone acetate 25 mg FL BID 24 ea 1RF I have re-examined the patient. There are no clinical changes since date of exam.
[2021-11-17 06:42] LABS: ALB/GLOB Ratio 1.1 RATIO (0.9-2.4); AST(SGOT) 118 U/L (15-37); Alanine Aminotransfer ALT/SGPT 219 U/L (13-56); Albumin, Serum 2.9 g/dL (3.2-5.0); Alkaline Phosphatase 221 U/L (45-117); Anion Gap 6 (5-15); BUN 6 mg/dL (7-18); BUN/Creat Ratio 11.2 RATIO (10-20); Calcium,Total 7.7 mg/dL (8.5-10.1); Chloride 111 mmol/L (98-107); Creatinine, Serum 0.54 mg/dL (0.55-1.02); EST Glomerular Filtration Rate 128 mL/min (>60); Est Glom Filt Rate - Afr Amer 155 mL/min (>60); Globulin 2.7 g/dL (2.2-4.2); Glucose 88 mg/dL (74-106); Potassium 3.1 mmol/L (3.5-5.1); Protein, Total 5.6 g/dL (6.4-8.2); Sodium Level 140 mmol/L (136-145)
--- NOTE | 2021-11-17 09:42 | NURSING ---
This Nurse is aware of VS taken by Monie Clifford Student Nurse.
[2021-11-17] MEDS: Acetaminophen 325 MG Tablet 650 MG PO (09:46)
--- NOTE | 2021-11-17 10:23 | RAD_ITS ---
STUDY: ERCP. REASON FOR EXAM: Female, 51 years old. PAIN, FLUOROSCOPY TIME (if supplied): ( 33.5 seconds ) minutes/seconds. 9 images were submitted. TECHNIQUE: An ERCP was performed by the event sales representative. Imaging was submitted. COMPARISON: None. FINDINGS: Contrast was injected into the common bile duct. A balloon catheter is seen. A sphincterotomy was performed. A CBD stent was placed. RAD/ERCP Biliary Only IMPRESSION: Placement of a common bile duct stent. Electronically Signed: Von Muhammad MD at 14:22 EST ,
--- NOTE | 2021-11-17 11:49 | EKG12_ITS ---
Test Reason : RHYTHM CHANGE Blood Pressure : / mmHG Vent. Rate : 071 BPM Atrial Rate : 071 BPM P-R Int : 102 ms QRS Dur : 102 ms QT Int : 430 ms P-R-T Axes : -17 044 007 degrees QTc Int : 467 ms Sinus rhythm with short VA with Premature atrial complexes Nonspecific T wave abnormality Prolonged QT Abnormal ECG When compared with ECG of 17-NOV-2021 12:00, MANUAL COMPARISON REQUIRED, DATA IS UNCONFIRMED Confirmed by IRENE VÁSQUEZ, SHO ([id number]), greeting card editor MARY ROOT ([id number]) on 11/23/2021 11:20:23 AM Referred By: JADEN Confirmed By:SHO BONILLA MD
--- NOTE | 2021-11-17 12:00 | EKG12_ITS ---
Test Reason : PREOP Blood Pressure : / mmHG Vent. Rate : 076 BPM Atrial Rate : 076 BPM P-R Int : 156 ms QRS Dur : 106 ms QT Int : 398 ms P-R-T Axes : 052 043 041 degrees QTc Int : 447 ms Normal sinus rhythm Normal ECG When compared with ECG of 19-JAN-2021 00:11, No significant change was found Confirmed by IRENE VÁSQUEZ, SHO ([id number]), fashion editor MARY ROOT ([id number]) on 11/23/2021 11:22:34 AM Referred By: MICHELLE Confirmed By:SHO BONILLA MD
[2021-11-17] MEDS: Lactated Ringers 1,000 ML 15 ML IV ×2 (12:15→13:57)
--- NOTE | 2021-11-17 13:37 | OP.ERCP_ITS ---
Patient Name: Imelda Lange Procedure Date: 11/17/2021 12:30 PM Date of : 1970 Age: 51 Procedure: ERCP Indications: Common bile duct stone(s) Providers: Douglas Serrato DO Medicines: General Anesthesia Patient Profile: This is a 51 year old female. Refer to note in patient chart for documentation of history and physical. Patient has symptoms of acute jaundice. This patient has no history of previous ERCP. Complications: No immediate complications. Procedure: Pre-Anesthesia Assessment: - Prior to the procedure, a History and Physical was performed, and patient medications and allergies were reviewed. The patient is competent. The risks and benefits of the procedure and the sedation options and risks were discussed with the patient. All questions were answered and informed consent was obtained. Patient identification and proposed procedure were verified by the physician in the pre-procedure area. Mental Status Examination: alert and oriented. Airway Examination: normal oropharyngeal airway and neck mobility. Respiratory Examination: clear to auscultation. CV Examination: normal. Prophylactic Antibiotics: The patient does not require prophylactic antibiotics. Prior Anticoagulants: The patient has taken no previous anticoagulant or antiplatelet agents. After reviewing the risks and benefits, the patient was deemed in satisfactory condition to undergo the procedure. The anesthesia plan was to use moderate sedation / analgesia (conscious sedation). Immediately prior to administration of medications, the patient was re-assessed for adequacy to receive sedatives. The heart rate, respiratory rate, oxygen saturations, blood pressure, adequacy of pulmonary ventilation, and response to care were monitored throughout the procedure. The physical status of the patient was re-assessed after the procedure. After obtaining informed consent, the scope was passed under direct vision. Throughout the procedure, the patient's blood pressure, pulse, and oxygen saturations were monitored continuously. The duodenoscope was introduced through the mouth, and advanced to the duodenum and used to inject contrast into the bile duct. The ERCP was accomplished without difficulty. The patient tolerated the procedure well. Moderate Sedation: Moderate (conscious) sedation was administered by the endoscopy nurse and supervised by the endoscopist. The following parameters were monitored: oxygen saturation, heart rate, blood pressure, and response to care. Total physician intraservice time was 15 minutes. Scope In: 12:59:35 PM Scope Out: 1:28:02 PM Total Procedure Duration Time 0 hours 28 minutes 27 seconds Findings: The sustainability communicator film was normal. The esophagus was successfully intubated under direct vision. The scope was advanced to a normal major papilla in the descending duodenum without detailed examination of the pharynx, larynx and associated structures, and upper GI tract. The upper GI tract was grossly normal. The bile duct was deeply cannulated with the short-nosed traction sphincterotome. Contrast was injected. I personally interpreted the bile duct images. Ductal flow of contrast was adequate. Opacification of the main bile duct was successful. The maximum diameter of the ducts was 7 mm. The lower third of the main bile duct contained one stone, which was 6 mm in diameter. The main bile duct was diffusely dilated, with a stone causing an obstruction. The largest diameter was 8 mm. The lower third of the main bile duct contained a single localized stenosis 6 mm in length. A straight Roadrunner wire was passed into the biliary tree. A 5 mm biliary sphincterotomy was made with a braided traction (standard) sphincterotome using ERBE electrocautery. There was no post-sphincterotomy bleeding. The biliary tree was swept with a 12 mm balloon starting at the bifurcation. All stones were removed. Dilation of the common bile duct with a 6-7-8 mm balloon dilator was successful. One 10 Fr by 5 cm temporary stent with two external flaps and two internal flaps was placed 5 cm into the common bile duct. Bile flowed through the stent. The stent was in good position. Impression: - A single localized biliary stricture was found in the lower third of the main bile duct. The stricture was benign appearing. - The entire main bile duct was dilated, with a stone causing an obstruction. - Choledocholithiasis was found. Complete removal was accomplished by biliary sphincterotomy and balloon extraction. - A biliary sphincterotomy was performed. - The biliary tree was swept. - Common bile duct was successfully dilated. - One temporary stent was placed into the common bile duct. Procedure Code(s): --- Professional --- 67601, Endoscopic retrograde cholangiopancreatography (ERCP); with placement of endoscopic stent into biliary or pancreatic duct, including pre- and post-dilation and guide wire passage, when performed, including sphincterotomy, when performed, each stent 22075, Endoscopic retrograde cholangiopancreatography (ERCP); with removal of calculi/debris from biliary/pancreatic duct(s) 05855, Endoscopic catheterization of the biliary ductal system, radiological supervision and interpretation G0500, Moderate sedation services provided by the same physician or other qualified health regular senior care provider performing a gastrointestinal endoscopic service that sedation supports, requiring the presence of an independent trained observer to assist in the monitoring of the patient's level of consciousness and physiological status; initial 15 minutes of intra-service time; patient age 5 years or older (additional time may be reported with 17347, as appropriate) CPT copyright 2017 [employer]. All rights reserved. The codes documented in this report are preliminary and upon senior application software engineer review may be revised to meet current compliance requirements. Douglas Serrato DO 11/17/2021 1:37:10 PM This report has been signed electronically. Number of Addenda: 0 Note Initiated On: 11/17/2021 12:30 PM
--- NOTE | 2021-11-17 13:37 | OP.CCLET_ITS ---
11/17/2021 Klarissa Nation [address] [place] [address] Re : ERCP procedure for Imelda Lange Dear Dr. Nation This procedure was performed on Wednesday, November 17, 2021. My impressions and recommendations are as follows: Impressions : - A single localized biliary stricture was found in the lower third of the main bile duct. The stricture was benign appearing. - The entire main bile duct was dilated, with a stone causing an obstruction. - Choledocholithiasis was found. Complete removal was accomplished by biliary sphincterotomy and balloon extraction. - A biliary sphincterotomy was performed. - The biliary tree was swept. - Common bile duct was successfully dilated. - One temporary stent was placed into the common bile duct. Recommendations : My findings are described in the full procedure note, which is enclosed. If I can be of further assistance, please feel free to contact me at . Sincerely, Douglas Serrato, 11/17/2021 1:37:10 PM This report has been signed electronically.
--- NOTE | 2021-11-17 14:44 | PN.HOSP_ITS ---
Subjective Subjective Feeling better. Still with epigastric tenderness. Objective Data Objective Data Vital Signs: Vital Signs Temp Pulse Resp BP Pulse Ox 37.2 C 83 16 105/58 L 94 11/17/21 14:30 11/17/21 14:30 11/17/21 14:30 11/17/21 14:30 11/17/21 14:30 Oxygen Flow Rate (L/min) 4 Oxygen Delivery Method Room Air Weight: 66.8 kg Body Mass Index (BMI) 26.0 Intake & Output: Intake and Output for Last 24 Hours 11/15/21 11/16/21 11/17/21 23:59 23:59 23:59 Intake Total 2100 / 2160 3170 / 3170 Output Total 600 / 600 Balance 2100 / 1860 2570 / 2570 Lab / Micro Data Result Diagrams: 11/17/21 05:45 11/17/21 05:45 Labs: Laboratory Results - last 24 hr 11/17/21 05:45: WBC 11.3 H, RBC 3.85 L, Hgb 12.3, Hct 35.9 L, MCV 93.2, MCH 31.9, MCHC 34.3 D, RDW Std Deviation 40.9, RDW Coeff of Nicolas 12.0, Plt Count 204, MPV 10.1, Immature Gran % (Auto) 0.400, Neut % (Auto) 81.9 H, Lymph % (Auto) 8.1 L, [place] % (Auto) 8.5, Eos % (Auto) 0.7, Baso % (Auto) 0.4, Absolute Neuts (auto) 9.3 H, Absolute Lymphs (auto) 0.92, Nucleated RBC % 0 11/17/21 05:45: Sodium 140, Potassium 3.1 L, Chloride 111 H, Carbon Dioxide 23.0, Anion Gap 6, BUN 6 L, Creatinine 0.54 L, Estim Creat Clear Calc 103.10, Est GFR (MDRD) Af Amer 155, Est GFR (MDRD) Non-Af 128, BUN/Creatinine Ratio 11.2, Glucose 88, Calcium 7.7 L, Total Bilirubin 1.20 H, AST 118 H, ALT 219 H, Alkaline Phosphatase 221 H, Total Protein 5.6 L, Albumin 2.9 L, Globulin 2.7, Albumin/Globulin Ratio 1.1 Micro: Microbiology 11/16/21 16:37 Nasal Secretion SARS-CoV-2 Antigen (Rapid) - Final Radiography Diagnostic Testing: Radiology Impression ERCP X-Ray 11/17/21 10:23 IMPRESSION: Placement of a common bile duct stent. Electronically Signed: Von Muhammad MD at 14:22 EST , Physical Exam Const alert and no apparent distress Resp normal respiratory effort, no retractions, no use of accessory muscles and clear to auscultation bilaterally Cardio regular rate, regular rhythm, S1 normal heart sound and S2 normal heart sound GI normal to inspection, nondistended, normoactive bowel sounds and soft to palpation Assessment & Plan Assessment/Plan (1) Acute gallstone pancreatitis: PLAN: 1. acute gallstone pancreatitis ERCP on 11/17: noted localized biliary strictures. Main bile duct was dilated with stone. s/p sphincterotomy and stent placement will need a cholecystectomy, will need to be performed as inpt. General surgery following. 2. VTE prophylaxis: SCDs Charges/Coding Visit Charges Inpatient E&M: 06212 Subs Hosp L2
--- NOTE | 2021-11-17 15:15 | PCM.PN.SRG ---
Subjective Subjective Successful ERCP with stone extraction and stent placement. Still complaining of some epigastric discomfort. Objective Data Objective Data Soft Vital Signs: Vital Signs Temp Pulse Resp BP Pulse Ox 98.9 F 83 16 105/58 L 94 11/17/21 14:30 11/17/21 14:30 11/17/21 14:30 11/17/21 14:30 11/17/21 14:30 Oxygen Flow Rate (L/min) 4 Oxygen Delivery Method Room Air Weight: 147 lb 4.301 oz Body Mass Index (BMI) 26.0 Intake & Output: Intake and Output for Last 24 Hours 11/15/21 11/16/21 11/17/21 23:59 23:59 23:59 Intake Total 2100 / 2160 3170 / 3170 Output Total 600 / 600 Balance 2100 / 1860 2570 / 2570 Lab / Micro Data Result Diagrams: 11/17/21 05:45 11/17/21 05:45 Labs: Laboratory Results - last 24 hr 11/17/21 05:45: WBC 11.3 H, RBC 3.85 L, Hgb 12.3, Hct 35.9 L, MCV 93.2, MCH 31.9, MCHC 34.3 D, RDW Std Deviation 40.9, RDW Coeff of Nicolas 12.0, Plt Count 204, MPV 10.1, Immature Gran % (Auto) 0.400, Neut % (Auto) 81.9 H, Lymph % (Auto) 8.1 L, [place] % (Auto) 8.5, Eos % (Auto) 0.7, Baso % (Auto) 0.4, Absolute Neuts (auto) 9.3 H, Absolute Lymphs (auto) 0.92, Nucleated RBC % 0 11/17/21 05:45: Sodium 140, Potassium 3.1 L, Chloride 111 H, Carbon Dioxide 23.0, Anion Gap 6, BUN 6 L, Creatinine 0.54 L, Estim Creat Clear Calc 103.10, Est GFR (MDRD) Af Amer 155, Est GFR (MDRD) Non-Af 128, BUN/Creatinine Ratio 11.2, Glucose 88, Calcium 7.7 L, Total Bilirubin 1.20 H, AST 118 H, ALT 219 H, Alkaline Phosphatase 221 H, Total Protein 5.6 L, Albumin 2.9 L, Globulin 2.7, Albumin/Globulin Ratio 1.1 Micro: Microbiology 11/16/21 16:37 Nasal Secretion SARS-CoV-2 Antigen (Rapid) - Final Radiography Diagnostic Testing: Radiology Impression ERCP X-Ray 11/17/21 10:23 IMPRESSION: Placement of a common bile duct stent. Electronically Signed: Von Muhammad MD at 14:22 EST , Assessment & Plan Assessment/Plan (1) Acute gallstone pancreatitis: PLAN: Little tricky with the weather plan over the next 24 hours. I am probably going to take Her to surgery on Monday afternoon and remove her gallbladder at that time.
[2021-11-17] MEDS: Famotidine 20 MG Tablet PO (22:07)
[2021-11-18] VITALS (12 sets, daily range): BP systolic 109–135; BP diastolic 60–79; PULSE 64–92; RESP 14–18; TEMP 36.6–37.3; O2SAT 91–99; BMI 28.2
--- NOTE | 2021-11-18 | GALL_PTH ---
PATIENT: KRYSTINA SANCHES LOC: MS3 U#:[id number] AGE/SX: 51/F ROOM: [facility] [place] RE11/16/[address]: Dr. Girma Sal DO : 1970 BED: 1 DIS: 11/20/2021 SPEC #: [id number] RECD: 11/18/21 12:25 STATUS: OLVIN MENDEZ #: [id number] CRESENCIO: 11/18/21 00:[address]: Bhaskar Contreras DEPT: SURGICAL PATHOLOGY RECD BY: Sammie Mckinney ENTERED: 11/18/21 13:16 SP TYPE: GALLBLADDE OTHR DR: MD Dr. Klarissa Marquis MD Dr. Daniel Peabody, MD Dr. Eric Jopperi, Tissues: Gallbladder, NOS Procedures: Surgery Specimen Level III Comments: @ Ordering doctor for SUIII edited from to @ farnaz DONALDSON at 11/18/21 1524 @ Submitting doctor edited from to @ farnaz DONALDSON at 11/18/21 1524 HEADER OPERATION: Laparoscopic cholecystectomy PRE-OP DIAGNOSIS: Acute gallstone pancreatitis TISSUE SUBMITTED: Gallbladder MICROSCOPIC DIAGNOSIS Gallbladder, cholecystectomy: Chronic cholecystitis and cholelithiasis. AM:ki 11/22/2021 MICROSCOPIC DESCRIPTION Slides are reviewed. GROSS DESCRIPTION Received is one container labeled with the patient's name and designated gallbladder. The specimen consists of a previously opened gallbladder measuring 7 x 3.5 x 3.5. The external surface is smooth and glistening. Focally, it is granular, hemorrhagic and contains cautery artifact. The lumen of the gallbladder contains yellow-green mucoid bile and multiple green-dark ahumada calculi and fragments of calculi ranging in size from <0.1 to 2.2 cm in greatest dimension. The mucosa is bile-stained and without any mass lesions. The gallbladder wall averages 0.3 cm in thickness and is free of mass lesions. Farm Mechanic sections of the gallbladder and the cystic duct at margin of resection are submitted in one cassette. / AM:bety 11/18/21 TC:3 CPT: 24480
[2021-11-18] MEDS: 0.9% Normal Saline 1,000 ML 200 ML IV ×4 (01:14→20:00)
[2021-11-18] MEDS: Piperacil/Tazobactam 3.375 GM/50 ML ML IV ×3 (05:44→22:22)
[2021-11-18 06:41] LABS: Absolute Lymphocyte Count 0.93 X10^3/uL (0.83-4.51); Absolute Neutrophil Count 11.2 X10^3/uL (2.0-7.7); Basophil# 0.03 X10^3/uL; Basophil% 0.2 % (0-1); Eosinophil# 0.01 X10^3/uL; Eosinophils% 0.1 % (0-5); Hematocrit 29.9 % (37-47); Hemoglobin 11.1 g/dL (12.0-15.0); Lymphocyte # 0.93 X10^3/ul (0.83-4.51); Lymphocyte % 7.1 % (19-41); Mean Corp Hgb Conc 37.1 g/dL (32-36); Mean Corpuscular Hgb 33.6 pg (27.0-32.0); Mean Corpuscular Volume 90.6 fL (81-99); Mean Platelet Vol. 10.2 fl (6.2-12.0); Monocyte# 0.91 X10^3/uL; Monocyte% 6.9 % (0-10); NRBC Flagged by Analyzer 0 % (0-5); Neutrophil # 11.15 X10^3/uL (2.7-7.7); Neutrophil % 85.1 % (47-70); Platelet Count 216 K/mm3 (150-450); RBC Distribution Width CV 11.9 % (11.6-14.6); RBC Distribution Width SD 39.3 fl (35.1-43.9); White Blood Count 13.1 K/mm3 (4.4-11.0)
[2021-11-18 07:13] LABS: ALB/GLOB Ratio 0.8 RATIO (0.9-2.4); AST(SGOT) 38 U/L (15-37); Alanine Aminotransfer ALT/SGPT 130 U/L (13-56); Albumin, Serum 2.6 g/dL (3.2-5.0); Alkaline Phosphatase 172 U/L (45-117); Anion Gap 6 (5-15); BUN 7 mg/dL (7-18); BUN/Creat Ratio 10.9 RATIO (10-20); Calcium,Total 7.7 mg/dL (8.5-10.1); Chloride 113 mmol/L (98-107); Creatinine, Serum 0.64 mg/dL (0.55-1.02); EST Glomerular Filtration Rate 104 mL/min (>60); Est Glom Filt Rate - Afr Amer 126 mL/min (>60); Estimated Creatinine Clearance 86.99 ml/min; Globulin 3.1 g/dL (2.2-4.2); Glucose 124 mg/dL (74-106); Protein, Total 5.7 g/dL (6.4-8.2); Sodium Level 142 mmol/L (136-145)
[2021-11-18] MEDS: Potassium Chloride 10mEq/100mL 10 MEQ/100 ML IV.SOLN. 100 MEQ IV BOLUS (10:15)
[2021-11-18] MEDS: Bupivacaine Mpf 0.5% 30 ML VIAL (10:58)
--- NOTE | 2021-11-18 11:55 | OP.PCM_ITS ---
Problems Associated Problem List Diagnoses (1) Acute gallstone pancreatitis: Report of Operation Date of Procedure: 11/18/21 Pre-Operative Diagnosis: Gallstone pancreatitis Post-Operative Diagnosis: Same Surgery/Procedure Performed:: Laparoscopic cholecystectomy Surgeon: Bhaskar Contreras drop crew laborer: Tyrese Isaacs Type of Anesthesia: General Anesthesiologist: Marbin Ramsay Specimen's removed: Gallbladder Drains: 15 round Arturo-Domingo Estimated Blood Loss (mL): 100 cc Description of Procedure: Patient was brought into the operating room. Placed in the supine position. Under excellent general endotracheal ovation the abdomen was sterilely prepped draped usual fashion. Local was injected infraumbilically. Dissection was carried down to the fascia. The fascia was grasped with a [place]. Varies needle was placed inside the abdomen. The abdomen was insufflated to 15 torr. A 10/12 trocar was placed without difficulty. Patient was placed in the head up and rotated to the left position. A subxiphoid #5 trochars placed, inferior to this another #5 trocar was placed, laterally #5 trochars placed. All these were placed under direct visualization without injury to underlying structures. Moderate amount of adhesions were on the gallbladder and liver itself which I took down with electrocautery. Patient had a very thick very hard gallbladder I was able to lifted up I spent quite a bit of time dissecting out the cystic duct. Eventually I felt confident that I had the cystic duct place hemoclips proximally and distally and ligated the duct although this area was very thick very hard I was dissecting free placing hemoclips on the cystic artery and then the posterior branch of the cystic artery. Deliver the gallbladder from the gallbladder bed with use of electrocautery once again extremely dense raw liver surface I eventually did get it out placed in a specimen bag and delivered through the umbilical port. Liver itself was very raw irrigated this out used the argon beam processing inspector for good epistasis. Once I had achieved good epistasis I did place some Oscar into the liver bed I saw no bleeding through the Oscar. I did leave a 15 round Arturo- Domingo drain through the lateral incision suturing it to the skin with a 3-0 nylon. Confident that I had good admit stasis trochars were removed umbilical port was closed with a [id number] stitch of 0 Vicryl. Skin incisions were closed with subcuticular stitches of 4-0 Monocryl. Steri-Strips were applied sterile dressings were applied and the patient tolerated the procedure well. Admit VTE Documentation VTE Present on Admission: No VTE Mechan Device Prophylaxis: SCD's VTE Pharm Prophylaxis ordered?: No Reason prophylaxis not ordered:: Treatment Not Indicated
--- NOTE | 2021-11-18 14:16 | PN.HOSP_ITS ---
Subjective Subjective s.p micaela schofield. has some abdominal pain. Objective Data Objective Data Vital Signs: Vital Signs Temp Pulse Resp BP Pulse Ox 36.9 C 68 16 127/74 H 98 11/18/21 13:59 11/18/21 13:59 11/18/21 13:59 11/18/21 13:59 11/18/21 13:59 Oxygen Flow Rate (L/min) 2 Oxygen Delivery Method Nasal Cannula Weight: 72.3 kg Body Mass Index (BMI) 28.2 Intake & Output: Intake and Output for Last 24 Hours 11/16/21 11/17/21 11/18/21 23:59 23:59 23:59 Intake Total 2100 / 2160 5402.83 / 5402.83 3560.00 / 3560.00 Output Total 1300 / 1300 60 / 60 Balance 2100 / 1860 4102.83 / 4102.83 3500.00 / 3500.00 Lab / Micro Data Result Diagrams: 11/18/21 06:20 11/18/21 06:20 Labs: Laboratory Results - last 24 hr 11/18/21 06:20: WBC 13.1 H, RBC 3.30 L, Hgb 11.1 L, Hct 29.9 L, MCV 90.6, MCH 33.6 H, MCHC 37.1 H D, RDW Std Deviation 39.3, RDW Coeff of Nicolas 11.9, Plt Count 216, MPV 10.2, Immature Gran % (Auto) 0.600, Neut % (Auto) 85.1 H, Lymph % (Aut o) 7.1 L, [place] % (Auto) 6.9, Eos % (Auto) 0.1, Baso % (Auto) 0.2, Absolute Neuts (auto) 11.2 H, Absolute Lymphs (auto) 0.93, Nucleated RBC % 0 11/18/21 06:20: Sodium 142, Potassium 3.0 L, Chloride 113 H, Carbon Dioxide 23.0, Anion Gap 6, BUN 7, Creatinine 0.64, Estim Creat Clear Calc 86.99, Est GFR (MDRD) Af Amer 126, Est GFR (MDRD) Non-Af 104, BUN/Creatinine Ratio 10.9, Glucose 124 H, Calcium 7.7 L, Total Bilirubin 0.50, AST 38 H, ALT 130 H, Alkaline Phosphatase 172 H, Total Protein 5.7 L, Albumin 2.6 L, Globulin 3.1, Albumin/Globulin Ratio 0.8 L Micro: Microbiology 11/16/21 16:37 Nasal Secretion SARS-CoV-2 Antigen (Rapid) - Final Radiography Diagnostic Testing: Radiology Impression ERCP X-Ray 11/17/21 10:23 IMPRESSION: Placement of a common bile duct stent. Electronically Signed: Von Muhammad MD at 14:22 EST , Physical Exam Const alert and no apparent distress Resp normal respiratory effort, no retractions and no use of accessory muscles Cardio regular rate, regular rhythm, S1 normal heart sound and S2 normal heart sound GI normal to inspection, nondistended, normoactive bowel sounds and soft to palpation GI Narrative: hypoactive BS. drain in place. Assessment & Plan Assessment/Plan (1) Acute gallstone pancreatitis: PLAN: 1. acute gallstone pancreatitis ERCP on 11/17: noted localized biliary strictures. Main bile duct was dilated with stone. s/p sphincterotomy and stent placement lap chandu on 11/18. drain in [address]. NPO. Advance diet per general surgery. 2. VTE prophylaxis: SCDs Charges/Coding Visit Charges Inpatient E&M: 07596 Subs Hosp L2
[2021-11-18] MEDS: Famotidine 20 MG Tablet PO (20:39)
[2021-11-19] MEDS: 0.9% Normal Saline 1,000 ML 200 ML IV (01:09)
[2021-11-19 02:30] VITALS: BP 131/78; PULSE 54; RESP 18; TEMP 36.7; O2SAT 92
--- NOTE | 2021-11-19 04:47 | NURSING ---
DR PRUITT MADE AWARE OF PT'S GENERALIZED EDEMA - MD IN TO ASSESS PT. NEW IVF ORDERS.
[2021-11-19] MEDS: oxyCODONE 5 MG Tablet PO ×3 (05:00→21:52)
[2021-11-19] MEDS: Acetaminophen 325 MG Tablet 650 MG PO ×3 (05:01→21:52)
[2021-11-19 05:06] LABS: Absolute Lymphocyte Count 1.41 X10^3/uL (0.83-4.51); Absolute Neutrophil Count 11.1 X10^3/uL (2.0-7.7); Basophil# 0.03 X10^3/uL; Basophil% 0.2 % (0-1); Eosinophil# 0.07 X10^3/uL; Eosinophils% 0.5 % (0-5); Hematocrit 31.8 % (37-47); Hemoglobin 11.1 g/dL (12.0-15.0); Lymphocyte # 1.41 X10^3/ul (0.83-4.51); Lymphocyte % 10.4 % (19-41); Mean Corp Hgb Conc 34.9 g/dL (32-36); Mean Corpuscular Hgb 32.3 pg (27.0-32.0); Mean Corpuscular Volume 92.4 fL (81-99); Mean Platelet Vol. 10.3 fl (6.2-12.0); Monocyte# 0.82 X10^3/uL; Monocyte% 6.1 % (0-10); NRBC Flagged by Analyzer 0 % (0-5); Neutrophil # 11.13 X10^3/uL (2.7-7.7); Neutrophil % 82.5 % (47-70); Platelet Count 235 K/mm3 (150-450); RBC Distribution Width CV 12.3 % (11.6-14.6); RBC Distribution Width SD 41.5 fl (35.1-43.9); Red Blood Count 3.44 M/mm3 (4.2-5.4); White Blood Count 13.5 K/mm3 (4.4-11.0)
[2021-11-19 05:40] LABS: ALB/GLOB Ratio 0.8 RATIO (0.9-2.4); AST(SGOT) 34 U/L (15-37); Alanine Aminotransfer ALT/SGPT 102 U/L (13-56); Albumin, Serum 2.5 g/dL (3.2-5.0); Alkaline Phosphatase 150 U/L (45-117); Anion Gap 5 (5-15); BUN 5 mg/dL (7-18); BUN/Creat Ratio 7.3 RATIO (10-20); Chloride 111 mmol/L (98-107); Creatinine, Serum 0.68 mg/dL (0.55-1.02); EST Glomerular Filtration Rate 97 mL/min (>60); Est Glom Filt Rate - Afr Amer 117 mL/min (>60); Estimated Creatinine Clearance 81.87 ml/min; Globulin 3.2 g/dL (2.2-4.2); Glucose 112 mg/dL (74-106); Potassium 3.1 mmol/L (3.5-5.1); Protein, Total 5.7 g/dL (6.4-8.2); Sodium Level 140 mmol/L (136-145)
[2021-11-19] MEDS: Piperacil/Tazobactam 3.375 GM/50 ML ML IV (06:20)
[2021-11-19] MEDS: 0.9% Normal Saline 1,000 ML 100 ML IV (06:51)
[2021-11-19 08:00] VITALS: PULSE 78; RESP 18
[2021-11-19 08:30] VITALS: BP 128/68; PULSE 68; RESP 18; TEMP 36.8; O2SAT 99
[2021-11-19] MEDS: Potassium Chloride Oral Tablet 20 MEQ 40 MEQ PO (08:46)
[2021-11-19] MEDS: Famotidine 20 MG Tablet PO ×2 (11:07→20:42)
--- NOTE | 2021-11-19 13:04 | PN.HOSP_ITS ---
Subjective Subjective Feel edemetous diffusely. Objective Data Objective Data Vital Signs: Vital Signs Temp Pulse Resp BP Pulse Ox 36.8 C 68 18 128/68 H 99 11/19/21 08:30 11/19/21 08:30 11/19/21 08:30 11/19/21 08:30 11/19/21 08:30 Oxygen Flow Rate (L/min) 2 Oxygen Delivery Method Room Air Weight: 75.8 kg Body Mass Index (BMI) 28.2 Intake & Output: Intake and Output for Last 24 Hours 11/17/21 11/18/21 11/19/21 23:59 23:59 23:59 Intake Total 5402.83 / 5402.83 4960.00 / 4960.00 3534.33 / 3534.33 Output Total 1300 / 1300 2740 / 2740 1660 / 1660 Balance 4102.83 / 4102.83 2220.00 / 2220.00 1874.33 / 1874.33 Lab / Micro Data Result Diagrams: 11/19/21 04:50 11/19/21 04:50 Labs: Laboratory Results - last 24 hr 11/19/21 04:50: WBC 13.5 H, RBC 3.44 L, Hgb 11.1 L, Hct 31.8 L, MCV 92.4, MCH 32.3 H, MCHC 34.9 D, RDW Std Deviation 41.5, RDW Coeff of Nicolas 12.3, Plt Count 2 35, MPV 10.3, Immature Gran % (Auto) 0.300, Neut % (Auto) 82.5 H, Lymph % (Auto) 10.4 L, [place] % (Auto) 6.1, Eos % (Auto) 0.5, Baso % (Auto) 0.2, Absolute Neuts (auto) 11.1 H, Absolute Lymphs (auto) 1.41, Nucleated RBC % 0 11/19/21 04:50: Sodium 140, Potassium 3.1 L, Chloride 111 H, Carbon Dioxide 24.0, Anion Gap 5, BUN 5 L, Creatinine 0.68, Estim Creat Clear Calc 81.87, Est GFR (MDRD) Af Amer 117, Est GFR (MDRD) Non-Af 97, BUN/Creatinine Ratio 7.3 L, Glucose 112 H, Calcium 8.0 L, Total Bilirubin 0.50, AST 34, ALT 102 H, Alkaline Phosphatase 150 H, Total Protein 5.7 L, Albumin 2.5 L, Globulin 3.2, Albumin/Globulin Ratio 0.8 L Micro: Microbiology 11/16/21 16:37 Nasal Secretion SARS-CoV-2 Antigen (Rapid) - Final Physical Exam Const alert and no apparent distress Resp normal respiratory effort, no retractions, no use of accessory muscles and clear to auscultation bilaterally Cardio regular rate, regular rhythm, S1 normal heart sound and S2 normal heart sound GI normal to inspection, nondistended, normoactive bowel sounds and non-tender Assessment & Plan Assessment/Plan (1) Acute gallstone pancreatitis: PLAN: 1. acute gallstone pancreatitis ERCP on 11/17: noted localized biliary strictures. Main bile duct was dilated with stone. s/p sphincterotomy and stent placement lap chandu on 11/18. drain in [address]. FLD. Advance diet per general surgery. HLIV DC pip/tazo 2. VTE prophylaxis: SCDs Charges/Coding Visit Charges Inpatient E&M: 77726 Subs Hosp L2
[2021-11-19 14:00] VITALS: PULSE 70; RESP 18
[2021-11-19 16:00] VITALS: BP 118/70; PULSE 64; RESP 18; TEMP 37.2; O2SAT 99
--- NOTE | 2021-11-19 16:27 | PCM.PROGNOTE ---
Subjective Subjective Is still having abdominal pain and feels very bloated. Patient reports that she is currently 20 pounds. We are suspecting that his fluid. She also has not had a bowel movement and about 5 to 6 days. She is status post cholecystectomy postop day 1. She has been afebrile and normotensive. Objective Data Objective Data Vital Signs: Vital Signs Temp Pulse Resp BP Pulse Ox 98.3 F 70 18 128/68 H 99 11/19/21 08:30 11/19/21 14:00 11/19/21 14:00 11/19/21 08:30 11/19/21 08:30 Oxygen Flow Rate (L/min) 2 Oxygen Delivery Method Room Air Weight: 167 lb 1.766 oz Body Mass Index (BMI) 28.2 Intake & Output: Intake and Output for Last 24 Hours 11/17/21 11/18/21 11/19/21 23:59 23:59 23:59 Intake Total 5402.83 / 5402.83 4960.00 / 4960.00 3534.33 / 3534.33 Output Total 1300 / 1300 2740 / 2740 1660 / 1660 Balance 4102.83 / 4102.83 2220.00 / 2220.00 1874.33 / 1874.33 Lab / Micro Data Result Diagrams: 11/19/21 04:50 11/19/21 04:50 Labs: Laboratory Results - last 24 hr 11/19/21 04:50: WBC 13.5 H, RBC 3.44 L, Hgb 11.1 L, Hct 31.8 L, MCV 92.4, MCH 32.3 H, MCHC 34.9 D, RDW Std Deviation 41.5, RDW Coeff of Nicolas 12.3, Plt Count 235, MPV 10.3, Immature Gran % (Auto) 0.300, Neut % (Auto) 82.5 H, Lymph % (Auto) 10.4 L, [place] % (Auto) 6.1, Eos % (Auto) 0.5, Baso % (Auto) 0.2, Absolute Neuts (auto) 11.1 H, Absolute Lymphs (auto) 1.41, Nucleated RBC % 0 11/19/21 04:50: Sodium 140, Potassium 3.1 L, Chloride 111 H, Carbon Dioxide 24.0, Anion Gap 5, BUN 5 L, Creatinine 0.68, Estim Creat Clear Calc 81.87, Est GFR (MDRD) Af Amer 117, Est GFR (MDRD) Non-Af 97, BUN/Creatinine Ratio 7.3 L, Glucose 112 H, Calcium 8.0 L, Total Bilirubin 0.50, AST 34, ALT 102 H, Alkaline Phosphatase 150 H, Total Protein 5.7 L, Albumin 2.5 L, Globulin 3.2, Albumin/Globulin Ratio 0.8 L Micro: Microbiology 11/16/21 16:37 Nasal Secretion SARS-CoV-2 Antigen (Rapid) - Final Physical Exam GI Palpation: soft and tender Assessment & Plan Assessment/Plan (1) Acute gallstone pancreatitis: PLAN: I suspect that she still having abdominal pain and bloating secondary to an ileus from her pancreatitis, cholecystitis and choledocholithiasis. She is off of IV fluids. We'll have to monitor her clinically to see how she does after fluids. She got volume resuscitated which is appropriate hematocrit has decreased appropriately. However her white blood cell count Increased. This could be reactive. I would recommend cultures. She is not having any urinary symptoms or any breathing problems at this time. I will give her Lasix 20 mg IV. I will also start her on some oral magnesium and scheduled oral potassium, IV Reglan 5 mg every 6 hours and Colace 20 mg twice daily. (2) Cholecystitis: PLAN: Status post cholecystectomy 1. (3) Choledocholithiasis: PLAN: Status post ERCP. Stone removal day 2
[2021-11-19] MEDS: Metoclopramide 10 MG/2 ML Vial 5 MG IV ×2 (17:10→23:49)
[2021-11-19] MEDS: Furosemide 20 MG/2 ML VIAL IV (17:10)
[2021-11-19] MEDS: Magnesium Chloride 64 MG Delay Rel.Tablet 128 MG PO (20:45)
[2021-11-19] MEDS: Docusate Sodium 100 MG Capsule 200 MG PO (20:45)
[2021-11-19 21:10] VITALS: BP 113/65; PULSE 70; RESP 16; TEMP 37.5; O2SAT 94
[2021-11-20 03:10] VITALS: BP 124/71; PULSE 85; RESP 16; TEMP 37.2; O2SAT 95
[2021-11-20] MEDS: Metoclopramide 10 MG/2 ML Vial 5 MG IV (05:08)
[2021-11-20] MEDS: oxyCODONE 5 MG Tablet PO (05:14)
[2021-11-20] MEDS: Acetaminophen 325 MG Tablet 650 MG PO (05:14)
[2021-11-20 08:00] VITALS: BP 117/73; PULSE 85; RESP 16; TEMP 37.1; O2SAT 92
[2021-11-20] MEDS: Docusate Sodium 100 MG Capsule 200 MG PO (08:45)
[2021-11-20] MEDS: Magnesium Chloride 64 MG Delay Rel.Tablet 128 MG PO (08:45)
[2021-11-20] MEDS: Famotidine 20 MG Tablet PO (08:46)
[2021-11-20 09:04] LABS: Erythrocyte Sedimentation Rate 26 mm/hr (0-30)
[2021-11-20 09:05] LABS: Absolute Neutrophil Count 9.9 X10^3/uL (2.0-7.7); Basophil# 0.04 X10^3/uL; Basophil% 0.3 % (0-1); Eosinophil# 0.13 X10^3/uL; Eosinophils% 1.1 % (0-5); Hematocrit 31.7 % (37-47); Hemoglobin 11.6 g/dL (12.0-15.0); Lymphocyte % 9.9 % (19-41); Mean Corp Hgb Conc 36.6 g/dL (32-36); Mean Corpuscular Hgb 33.1 pg (27.0-32.0); Mean Corpuscular Volume 90.6 fL (81-99); Mean Platelet Vol. 10.1 fl (6.2-12.0); Monocyte# 0.77 X10^3/uL; Monocyte% 6.4 % (0-10); NRBC Flagged by Analyzer 0 % (0-5); Neutrophil % 81.8 % (47-70); Platelet Count 257 K/mm3 (150-450); RBC Distribution Width CV 12.1 % (11.6-14.6); RBC Distribution Width SD 39.8 fl (35.1-43.9); White Blood Count 12.1 K/mm3 (4.4-11.0)
--- NOTE | 2021-11-20 09:13 | EX.PCM.DISCH ---
Discharge Instructions Procedure Gallbladder Diet Discharge Diet: Light diet - advance as tolerated Activity Discharge Activity: May Not Drive (for 2-3 days or while taking narcotic pain medications.) and - (Do not drive, work heavy equipment or sign legal documents for 24 hours.) May shower in (days): 1 (with the bandage in place.) Additional Activity Instructions:: Pain medication may cause nausea. You should typically eat light foods as you take your pain medications. Pain medication may also cause constipation. If this is a problem for you, please discuss with your doctor. Dressing / Incision Call your doctor if your incision/area has: Continuous Slow Oozing, Sudden Increased Bleeding, Increased Pain/ Swelling, Increased Redness and Foul Smelling Discharge Call your doctor if you observe: Fever of 101 or Higher Suture Line Care: Avoid Pulling/Pushing and Avoid Pinching/Bending Additional Dressing/Incision Instructions:: Leave operative bandaids on for 2 days. When you remove dressing, leave Steri-Strips on until your follow-up appointment, or until the Steri-Strips fall off on their own. Follow Up Care Please Follow Up With: Cesilia Montelongo PA-C When: Call office to schedule an appointment to be seen in 7 days after surgery. Test Results: Test results from this visit will be discussed in further detail at your follow-up appointment, if applicable. Discharge Plan Admission Admit Date/Time: 11/16/21 13:28 Attending Provider: Girma Sal Primary Care Provider: Klarissa Nation Consulting Providers: Bhaskar Contreras Discharge Orders/Prescriptions Prescriptions: New oxycodone-acetaminophen [Endocet] 5-325 mg tablet 1 tab PO Q4H PRN (Reason: pain) 5 Days Qty: 20 RF: 0 No Action ferrous sulfate [FeroSul] 325 mg (65 mg iron) tablet 325 mg PO BID RF: 0 Referrals / Follow Up: Klarissa Nation MD [Primary Care Provider] - Cesilia Montelongo PA-C [PHYSICIAN AIRLINE PILOT FLIGHT INSTRUCTOR] -
--- NOTE | 2021-11-20 09:13 | PCM.DC.SUM ---
Providers Date of Admission: 11/16/21 Primary Care Physician: Dr. Klarissa Nation MD Consultations 11/16/21 17:01 Consult: Gastroenterology Routine Consulting Provider: [facility] Reason for Consult: Gallstone pancreatitis EMERGENT Consult: No Notified: Yes Date Notified: 11/16/21 Time Notified: 17:12 Method of Notification: Text Consult: General Surgery Routine Consulting Provider: Bhaskar Contreras Reason for Consult: Gallstone pancreatitis EMERGENT Consult: No Notified: Yes Date Notified: 11/16/21 Time Notified: 13:32 Method of Notification: Page Reason For Visit: ACUTE GALLSTONE PANCREATITIS Diagnosis Discharge Diagnosis (1) Acute gallstone pancreatitis: Status: Acute Code(s): K85.10 - Biliary acute pancreatitis without necrosis or infection (2) Cholecystitis: Status: Acute Code(s): K81.9 - Cholecystitis, unspecified (3) Choledocholithiasis: Status: Acute Code(s): K80.50 - Calculus of bile duct without cholangitis or cholecystitis without obstruction Medications at Discharge Home Medications ferrous sulfate [FeroSul] 325 mg PO BID 11/16/21 oxycodone-acetaminophen [Endocet] 1 tab PO Q4H PRN 5 Days #20 tab 11/20/21 Hospital Course Operations cholecystecomy, ERCP and - Summary of Care Provided Hospital Course: Patient presented with gallstone pancreatitis. Subsequently underwent an ERCP with stent placement and stone removal. Following that she underwent a laparoscopic cholecystectomy she had a drain placed her course improved over 2 days a drain was subsequently removed and she was ready for discharge. Weight / BMI Weight Weight: 166 lb 0.129 oz Body Mass Index (BMI) 28.2 ABG / Lab / Microbiology Data Result Diagrams: 11/20/21 08:44 11/19/21 04:50 Laboratory: Laboratory Results - last 24 hr 11/20/21 08:44: WBC 12.1 H, RBC 3.50 L, Hgb 11.6 L, Hct 31.7 L, MCV 90.6, MCH 33.1 H, MCHC 36.6 H, RDW Std Deviation 39.8, RDW Coeff of Nicolas 12.1, Plt Count 257, MPV 10.1, Immature Gran % (Auto) 0.500, Neut % (Auto) 81.8 H, Lymph % (Auto) 9.9 L, [place] % (Auto) 6.4, Eos % (Auto) 1.1, Baso % (Auto) 0.3, Absolute Neuts (auto) 9.9 H, Absolute Lymphs (auto) 1.20, Nucleated RBC % 0, ESR 26 Microbiology: Microbiology 11/16/21 16:37 Nasal Secretion SARS-CoV-2 Antigen (Rapid) - Final D/C Instructions Discharge Diet: Light diet - advance as tolerated May shower in (days): 1 (with the bandage in place.) Additional Activity Instructions: Pain medication may cause nausea. You should typically eat light foods as you take your pain medications. Pain medication may also cause constipation. If this is a problem for you, please discuss with your doctor. Call your doctor if your incision/area has: Continuous Slow Oozing, Sudden Increased Bleeding, Increased Pain/ Swelling, Increased Redness and Foul Smelling Discharge Call your doctor if you observe: Fever of 101 or Higher Suture Line Care: Avoid Pulling/Pushing and Avoid Pinching/Bending Additional Dressing/Incision Instructions: Leave operative bandaids on for 2 days. When you remove dressing, leave Steri-Strips on until your follow-up appointment, or until the Steri-Strips fall off on their own. Please Follow Up With: Cesilia Montelongo PA-C When: Call office to schedule an appointment to be seen in 7 days after surgery. Meaningful Use Info Meaningful Use Diagnoses (Choose all that apply): None applicable Discharge Plan Admission Admit Date/Time: 11/16/21 13:28 Attending Provider: Girma Sal Primary Care Provider: Klarissa Nation Consulting Providers: Bhaskar Contreras Discharge Orders/Prescriptions Prescriptions: New oxycodone-acetaminophen [Endocet] 5-325 mg tablet 1 tab PO Q4H PRN (Reason: pain) 5 Days Qty: 20 RF: 0 No Action ferrous sulfate [FeroSul] 325 mg (65 mg iron) tablet 325 mg PO BID RF: 0 Referrals / Follow Up: Klarissa Nation MD [Primary Care Provider] - Cesilia Montelongo PA-C [PHYSICIAN BLOOD BANK LABORATORY TECHNOLOGIST] -
[2021-11-20 09:28] LABS: ALB/GLOB Ratio 0.7 RATIO (0.9-2.4); AST(SGOT) 25 U/L (15-37); Alanine Aminotransfer ALT/SGPT 74 U/L (13-56); Albumin, Serum 2.4 g/dL (3.2-5.0); Alkaline Phosphatase 139 U/L (45-117); Anion Gap 4 (5-15); BUN 4 mg/dL (7-18); BUN/Creat Ratio 6.8 RATIO (10-20); Calcium,Total 8.3 mg/dL (8.5-10.1); Chloride 107 mmol/L (98-107); Creatinine, Serum 0.59 mg/dL (0.55-1.02); EST Glomerular Filtration Rate 115 mL/min (>60); Est Glom Filt Rate - Afr Amer 140 mL/min (>60); Estimated Creatinine Clearance 94.36 ml/min; Globulin 3.5 g/dL (2.2-4.2); Glucose 133 mg/dL (74-106); Lipase 121 U/L (73-393); Potassium 2.9 mmol/L (3.5-5.1); Protein, Total 5.9 g/dL (6.4-8.2); Sodium Level 138 mmol/L (136-145)
[2021-11-20] MEDS: Potassium Chloride Oral Tablet 20 MEQ 40 MEQ PO (09:43)
== END 2021-11-20 10:58 | disposition home or self-care (01) | DRG 418 ==
LOC: ED 11:33 → MS3 14:18
PROVIDERS: Internal Medicine Gastroenterology; Surgery; Admitting Provider Internal Medicine; Emergency Provider Emergency Medicine; PCP Internal Medicine
PROC: 0FC98ZZ Extirpation of Matter from Common Bile Duct, Via Natural or Artificial Opening Endoscopic (ICD-10-PCS; CPT 43260; principal; 2021-11-17 14:45)
PROC: 0FT44ZZ Resection of Gallbladder, Percutaneous Endoscopic Approach (ICD-10-PCS; principal; 2021-11-18 09:40)
DX: K85.10 Biliary acute pancreatitis without necrosis or infection (principal); K80.62 Calculus of gallbladder and bile duct with acute cholecystitis without obstruction; K83.8 Other specified diseases of biliary tract; D64.9 Anemia, unspecified; Z87.19 Personal history of other diseases of the digestive system
CPT/HCPCS: 36415; 74328; 76000; 76705; 80048; 80053; 80076; 83690; 85025; 85652; 86140; 87426; 88304; 93005; 99251; 99284; J7030; J7050; J7120; A4216; G0463; J1940; J2405